=== PATIENT | female | born 1995 | race Caucasian/White ===

== ENCOUNTER 2016-11-27 11:28 | Emergency (ER) | payer OTHER, SELFPAY ==
[~2016-11-27 11:28] MED LIST: ADV100INH INH; ALBU83IN INH; DESYREL PO; HYDR25T PO; IBUP600T26 PO; METF500T PO; NORC5TAB PO; NORCOTAB PO; QVAR0.07 INH; SIME180C PO; TRAZ100T4 PO; TYLE325T5 PO; ZOFR20TA PO
[2016-11-27] MEDS ORDERED: predniSONE 20 MG TAB As Ordered ONE (11:45)
[2016-11-27] MEDS ORDERED: IPRATROPIUM 0.5MG/ALBUTEROL 2.5MG INH SOL UD 3ML (DUONEB)(J7620) As Ordered ONE (11:48)
--- NOTE | 2016-11-27 12:34 | EDDOCDS ---
Nurse's Notes [facility] Name: Swetha Shipley Age: 20 yrs Sex: Female : 1995 Arrival Date: 11/27/2016 Time: 11:28 Bed PR Private MD: Diagnosis: Acute upper respiratory infection, unspecified;Unspecified asthma with (acute) exacerbation Presentation: 11/27 11:35 Presenting complaint: Patient states: cough and wheezing for 2 days, ache to upper back jjr and chest. Adult Sepsis Screening: The patient does not have new or worsening altered mentation. Patient's respiratory rate is less than 22. Systolic blood pressure is greater than 100. Patient has a qSOFA score of 0- Negative Sepsis Screen. Suicide/Homicide risk assessment- the patient denies having any suicidal and/or homicidal ideations and does not present with any other emotional, behavioral or mental health complaints. 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 Transition of care: patient was not received from another setting of care. 11:35 Acuity: MONICA Level 4 jjr 11:35 Method Of Arrival: Walkin/Carried/Asstd jjr Triage Assessment: 11:37 General: Appears in no apparent distress. Pain: Location: back and chest. HIV screening jjr NA for this visit Offered previously. Respiratory: Reports cough that is persistent. 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 albuterol sulfate 90 mcg/actuation Inhl HFAA 2 puffs every 4-6 hours as needed 2. albuterol sulfate 2.5 mg /3 mL (0.083 %) Nebulizer nebu q8h prn (Last dose: 11/27/2016) 3. metformin 500 mg Oral tab 1 tab three times per day - PMHx: Asthma; Diabetes - NIDDM: controlled; Cancer, Colon; - PSHx: Cholecystectomy; Appendectomy; Bowel resection; lung biopsy; - Social history: Smoking status: Patient states former smoker of tobacco. No barriers to communication noted, The patient speaks fluent Qatari. - Family history: Not pertinent. - : The pt / caregiver states he / she is not on anticoagulants. Home medication list is obtained from the patient. - Exposure Risk Screening:: None identified. Screenin:31 Infection Control. bnb 11:43 Screening information is obtained from the patient. Fall risk: No risks identified. jjr Assistance ADL's: requires no assistance with activities of daily living. Abuse/DV Screen: The patient / caregiver reports he/she is: not in a situation that causes fear, pain or injury. Nutritional screening: No deficits noted. Advance Directives: There is no active DNR order. home support is adequate. Assessment: 11:43 General: Appears in no apparent distress, well nourished, well groomed, Behavior is jjr appropriate for age. Respiratory: Airway is patent Respiratory effort is even, unlabored, Respiratory pattern is regular, Breath sounds with wheezes inspiratory expiratory bilaterally. Derm: No deficits noted. 12:32 General: Appears in no apparent distress, Behavior is appropriate for age, cooperative. pml Pain: Denies pain. Neurological: Level of Consciousness is awake, alert, Oriented to person, place, time. Cardiovascular: Capillary refill < 3 seconds. Respiratory: Airway is patent Respiratory effort is even, unlabored. Derm: Skin is pink, warm & dry. Vital Signs: 11:29 BP 137 / 80 LA Sitting (auto/lg); Pulse 80; Resp 20; Temp 97.4(O); Pulse Ox 100% on bnb R/A; Weight 79.38 kg; Height 5 ft. 0 in. (152.40 cm); Pain 8/10; 11:29 Body Mass Index 34.18 (79.38 kg, 152.40 cm) [facility] Vitals: 11:29 Log In Time: November 27, 2016 at 11:28. [facility] ED Course: 11:29 Patient visited by Naheed Boateng PCA. bnb 11:29 Patient moved to Waiting bnb 11:30 Patient visited by Naheed Boateng PCA. bnb 11:30 Patient moved to Pre RCE bnb 11:31 Patient visited by Naheed Boateng PCA. bnb 11:35 Triage Initiated jjr 11:36 Ruslan Holland PA-C is PHCP. cc10 11:36 Charles Manzo MD is Attending Physician. cc10 11:37 Patient visited by Ruslan Holland PA-C. cc10 11:37 Patient visited by Ruslan Holland PA-C. cc10 11:37 Patient moved to Triage 2 ar3 11:40 Patient moved to PR2 / 26 jjr 11:43 The patient / caregiver is instructed regarding the plan of care and ED course. jjr 11:44 Patient visited by Vianey Moore RN. jjr 12:22 [facility] Payment Agreement was scanned into [employer] and attached to record. b 12:32 No IV's were initiated during this patient's visit. No procedures done that require pml assistance. Administered Medications: 11:47 Drug: predniSONE 40 mg [prednisone 20 mg tablet (2 tabs)] Route: PO; jjr 11:51 Drug: Albuterol-Ipratropium 3 ml [ipratropium-albuterol 0.5 mg-3 mg(2.5 mg base)/3 mL js nebulization soln (3 mL)] Route: Inhalation; RT: 11:51 Initial Med Neb Given as ordered Patient was instructed and evaluated on procedure js Patient tolerated procedure well without adverse effect. Respiratory: Breath sounds are coarse Breath sounds with wheezes bilaterally. at expiration. Order Results: There are currently no results for this order. Outcome: 12:21 Discharge ordered by Provider. cc10 12:32 Discharge Assessment: Patient awake, alert and oriented x 3. No cognitive and/or pml functional deficits noted. Patient verbalized understanding of disposition instructions. patient administered narcotics - no. The following High Risk Discharge criteria are identified: None. Discharged to home ambulatory. Condition: good Condition: stable. Discharge instructions given to patient, Instructed on discharge instructions, follow up and referral plans. medication usage, Demonstrated understanding of instructions, medications, Pt was receptive of discharge instructions/ teaching. Prescriptions given X 1. No special radiology studies were completed. Property sent home with patient. 12:34 Patient left the ED. pml Signatures: Doron Barriga Jessica, HAI RN Sanjuana Yoder, COMPLAINT CLERK COMPLAINT CLERK ar3 Gina Sotelo RN RN pml Coniski, Colin, PA-C PA-C cc10 Art, Jose, Reg Reg mpb Naheed Boateng, COMPLAINT CLERK COMPLAINT CLERK bnb MTDD
--- NOTE | 2016-11-27 12:34 | EDDOCDS ---
Physician Documentation [facility] Name: Swetha Shipley Age: 20 yrs Sex: Female : 1995 Arrival Date: 11/27/2016 Time: 11:28 Bed PR Private MD: Disposition: 11/27/16 12:21 Discharged to Home/Self Care. Impression: Acute upper respiratory infection, unspecified, Unspecified asthma with (acute) exacerbation. - Condition is Stable. - Discharge Instructions: Asthma, Adult. - Prescriptions for Pulmicort 0.5 mg/2 mL Inhalation suspension for nebulization - inhale 2 milliliter by NEBULIZATION route 2 times per day As needed; 1 box. - Medication Reconciliation, Work Release Form - 2 day form. - Follow up: Private Physician; When: Call to arrange an appointment; Reason: Wound/Symptom Recheck, Recheck today's complaints, Worsening of conditions, Continuance of care. - Problem is an acute exacerbation. - Symptoms have improved. Historical: - Allergies: no known allergies; - Home Meds: 1. albuterol sulfate 90 mcg/actuation Inhl HFAA 2 puffs every 4-6 hours as needed 2. albuterol sulfate 2.5 mg /3 mL (0.083 %) Nebulizer nebu q8h prn (Last dose: 11/27/2016) 3. metformin 500 mg Oral tab 1 tab three times per day - PMHx: Asthma; Diabetes - NIDDM: controlled; Cancer, Colon; - PSHx: Cholecystectomy; Appendectomy; Bowel resection; lung biopsy; - Social history: Smoking status: Patient states former smoker of tobacco. No barriers to communication noted, The patient speaks fluent Bahamian. - Family history: Not pertinent. - : The pt / caregiver states he / she is not on anticoagulants. Home medication list is obtained from the patient. - Exposure Risk Screening:: None identified. 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 0 in. (152.40 cm); Pain 8/10; 11:29 Body Mass Index 34.18 (79.38 kg, 152.40 cm) bnb MDM: 11:41 predniSONE 40 mg PO once; administer with food or milk ordered. cc10 11:41 Fluid Challenge ordered. cc10 11:41 Albuterol-Ipratropium 3 ml Inhalation once ordered. cc10 11:41 Call Respiratory ordered. cc10 11:42 Call Respiratory complete. jjr 12:06 Financial registration complete. mpb 12:22 [facility] Payment Agreement was scanned into [employer] and attached to record. mpb Administered Medications: 11:47 Drug: predniSONE 40 mg [prednisone 20 mg tablet (2 tabs)] Route: PO; jjr 11:51 Drug: Albuterol-Ipratropium 3 ml [ipratropium-albuterol 0.5 mg-3 mg(2.5 mg base)/3 mL js nebulization soln (3 mL)] Route: Inhalation; Signatures: Vianey Moore RN RN jGina Alanis RN RN pml Coniski, Colin, PA-C PA-C cc10 Jose Cordova, Reg Reg mpb Doron Barriga The chart was reviewed and I authenticate all verbal orders and agree with the evaluation and treatment provided.Attachments: 12:22 [facility] Payment Agreement mpb MTDD
--- NOTE | 2016-11-29 13:34 | EDDOCDS ---
Physician Documentation [facility] Name: Swetha Shipley Age: 20 yrs Sex: Female : 1995 Arrival Date: 11/27/2016 Time: 11:28 Bed PR Private MD: Disposition: 11/27/16 12:21 Discharged to Home/Self Care. Impression: Acute upper respiratory infection, unspecified, Unspecified asthma with (acute) exacerbation. - Condition is Stable. - Discharge Instructions: Asthma, Adult. - Prescriptions for Pulmicort 0.5 mg/2 mL Inhalation suspension for nebulization - inhale 2 milliliter by NEBULIZATION route 2 times per day As needed; 1 box. - Medication Reconciliation, Work Release Form - 2 day form. - Follow up: Private Physician; When: Call to arrange an appointment; Reason: Wound/Symptom Recheck, Recheck today's complaints, Worsening of conditions, Continuance of care. - Problem is an acute exacerbation. - Symptoms have improved. Historical: - Allergies: no known allergies; - Home Meds: 1. albuterol sulfate 90 mcg/actuation Inhl HFAA 2 puffs every 4-6 hours as needed 2. albuterol sulfate 2.5 mg /3 mL (0.083 %) Nebulizer nebu q8h prn (Last dose: 11/27/2016) 3. metformin 500 mg Oral tab 1 tab three times per day - PMHx: Asthma; Diabetes - NIDDM: controlled; Cancer, Colon; - PSHx: Cholecystectomy; Appendectomy; Bowel resection; lung biopsy; - Social history: Smoking status: Patient states former smoker of tobacco. No barriers to communication noted, The patient speaks fluent [place] Islander. - Family history: Not pertinent. - : The pt / caregiver states he / she is not on anticoagulants. Home medication list is obtained from the patient. - Exposure Risk Screening:: None identified. 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 0 in. (152.40 cm); Pain 8/10; 11:29 Body Mass Index 34.18 (79.38 kg, 152.40 cm) bnb MDM: 11:41 predniSONE 40 mg PO once; administer with food or milk ordered. cc10 11:41 Fluid Challenge ordered. cc10 11:41 Albuterol-Ipratropium 3 ml Inhalation once ordered. cc10 11:41 Call Respiratory ordered. cc10 11:42 Call Respiratory complete. jjr 12:06 Financial registration complete. mpb 12: [facility] Payment Agreement was scanned into [employer] and attached to record. mpb 20:52 T-Sheet-- Draft Copy was scanned into [employer] and attached to record. klr Administered Medications: 11:47 Drug: predniSONE 40 mg [prednisone 20 mg tablet (2 tabs)] Route: PO; jjr 11:51 Drug: Albuterol-Ipratropium 3 ml [ipratropium-albuterol 0.5 mg-3 mg(2.5 mg base)/3 mL js nebulization soln (3 mL)] Route: Inhalation; Signatures: Vianey Moore RN RN jjGina Browning RN RN pml Coniski, Colin, PA-Artemio PA-C cc10 Jose Cordova, Reg Reg mpb Dayan Min klr Doron Barriga The chart was reviewed and I authenticate all verbal orders and agree with the evaluation and treatment provided.Attachments: 12: [facility] Payment Agreement [facility] 20:52 T-Sheet-- Draft Copy klr Chart Complete MTDD
--- NOTE | 2016-11-29 13:35 | EDDOCDS ---
Physician Documentation [facility] Name: Swetha Shipley Age: 20 yrs Sex: Female : 1995 Arrival Date: 11/27/2016 Time: 11:28 Bed PR Private MD: Disposition: 11/27/16 12:21 Discharged to Home/Self Care. Impression: Acute upper respiratory infection, unspecified, Unspecified asthma with (acute) exacerbation. - Condition is Stable. - Discharge Instructions: Asthma, Adult. - Prescriptions for Pulmicort 0.5 mg/2 mL Inhalation suspension for nebulization - inhale 2 milliliter by NEBULIZATION route 2 times per day As needed; 1 box. - Medication Reconciliation, Work Release Form - 2 day form. - Follow up: Private Physician; When: Call to arrange an appointment; Reason: Wound/Symptom Recheck, Recheck today's complaints, Worsening of conditions, Continuance of care. - Problem is an acute exacerbation. - Symptoms have improved. Historical: - Allergies: no known allergies; - Home Meds: 1. albuterol sulfate 90 mcg/actuation Inhl HFAA 2 puffs every 4-6 hours as needed 2. albuterol sulfate 2.5 mg /3 mL (0.083 %) Nebulizer nebu q8h prn (Last dose: 11/27/2016) 3. metformin 500 mg Oral tab 1 tab three times per day - PMHx: Asthma; Diabetes - NIDDM: controlled; Cancer, Colon; - PSHx: Cholecystectomy; Appendectomy; Bowel resection; lung biopsy; - Social history: Smoking status: Patient states former smoker of tobacco. No barriers to communication noted, The patient speaks fluent Marshallese. - Family history: Not pertinent. - : The pt / caregiver states he / she is not on anticoagulants. Home medication list is obtained from the patient. - Exposure Risk Screening:: None identified. 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 0 in. (152.40 cm); Pain 8/10; 11:29 Body Mass Index 34.18 (79.38 kg, 152.40 cm) bnb MDM: 11:41 predniSONE 40 mg PO once; administer with food or milk ordered. cc10 11:41 Fluid Challenge ordered. cc10 11:41 Albuterol-Ipratropium 3 ml Inhalation once ordered. cc10 11:41 Call Respiratory ordered. cc10 11:42 Call Respiratory complete. jjr 12:06 Financial registration complete. mpb 12: [facility] Payment Agreement was scanned into [employer] and attached to record. mpb 20:52 T-Sheet-- Draft Copy was scanned into [employer] and attached to record. klr Administered Medications: 11:47 Drug: predniSONE 40 mg [prednisone 20 mg tablet (2 tabs)] Route: PO; jjr 11:51 Drug: Albuterol-Ipratropium 3 ml [ipratropium-albuterol 0.5 mg-3 mg(2.5 mg base)/3 mL js nebulization soln (3 mL)] Route: Inhalation; Signatures: Vianey Moore RN RN jjGina Browning RN RN pml Coniski, Colin, PA-Artemio PA-C cc10 Jose Cordova, Reg Reg mpb Dayan Min klr Doron Barriga The chart was reviewed and I authenticate all verbal orders and agree with the evaluation and treatment provided.Attachments: 12: [facility] Payment Agreement [facility] 20:52 T-Sheet-- Draft Copy klr Chart Complete MTDD
--- NOTE | 2016-11-29 13:35 | EDDOCDS ---
Nurse's Notes [facility] Name: Swetha Shipley Age: 20 yrs Sex: Female : 1995 Arrival Date: 11/27/2016 Time: 11:28 Bed PR Private MD: Diagnosis: Acute upper respiratory infection, unspecified;Unspecified asthma with (acute) exacerbation Presentation: 11/27 11:35 Presenting complaint: Patient states: cough and wheezing for 2 days, ache to upper back jjr and chest. Adult Sepsis Screening: The patient does not have new or worsening altered mentation. Patient's respiratory rate is less than 22. Systolic blood pressure is greater than 100. Patient has a qSOFA score of 0- Negative Sepsis Screen. Suicide/Homicide risk assessment- the patient denies having any suicidal and/or homicidal ideations and does not present with any other emotional, behavioral or mental health complaints. Status: Patient is not a it service technician or dependent. Transition of care: patient was not received from another setting of care. 11:35 Acuity: MONICA Level 4 jjr 11:35 Method Of Arrival: Walkin/Carried/Asstd jjr Triage Assessment: 11:37 General: Appears in no apparent distress. Pain: Location: back and chest. HIV screening jjr NA for this visit Offered previously. Respiratory: Reports cough that is persistent. 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 albuterol sulfate 90 mcg/actuation Inhl HFAA 2 puffs every 4-6 hours as needed 2. albuterol sulfate 2.5 mg /3 mL (0.083 %) Nebulizer nebu q8h prn (Last dose: 11/27/2016) 3. metformin 500 mg Oral tab 1 tab three times per day - PMHx: Asthma; Diabetes - NIDDM: controlled; Cancer, Colon; - PSHx: Cholecystectomy; Appendectomy; Bowel resection; lung biopsy; - Social history: Smoking status: Patient states former smoker of tobacco. No barriers to communication noted, The patient speaks fluent Filipino. - Family history: Not pertinent. - : The pt / caregiver states he / she is not on anticoagulants. Home medication list is obtained from the patient. - Exposure Risk Screening:: None identified. Screenin:31 Infection Control. bnb 11:43 Screening information is obtained from the patient. Fall risk: No risks identified. jjr Assistance ADL's: requires no assistance with activities of daily living. Abuse/DV Screen: The patient / caregiver reports he/she is: not in a situation that causes fear, pain or injury. Nutritional screening: No deficits noted. Advance Directives: There is no active DNR order. home support is adequate. Assessment: 11:43 General: Appears in no apparent distress, well nourished, well groomed, Behavior is jjr appropriate for age. Respiratory: Airway is patent Respiratory effort is even, unlabored, Respiratory pattern is regular, Breath sounds with wheezes inspiratory expiratory bilaterally. Derm: No deficits noted. 12:32 General: Appears in no apparent distress, Behavior is appropriate for age, cooperative. pml Pain: Denies pain. Neurological: Level of Consciousness is awake, alert, Oriented to person, place, time. Cardiovascular: Capillary refill < 3 seconds. Respiratory: Airway is patent Respiratory effort is even, unlabored. Derm: Skin is pink, warm & dry. Vital Signs: 11:29 BP 137 / 80 LA Sitting (auto/lg); Pulse 80; Resp 20; Temp 97.4(O); Pulse Ox 100% on bnb R/A; Weight 79.38 kg; Height 5 ft. 0 in. (152.40 cm); Pain 8/10; 11:29 Body Mass Index 34.18 (79.38 kg, 152.40 cm) [facility] Vitals: 11:29 Log In Time: November 27, 2016 at 11:28. [facility] ED Course: 11:29 Patient visited by Naheed Boateng PCA. bnb 11:29 Patient moved to Waiting bnb 11:30 Patient visited by Naheed Boateng PCA. bnb 11:30 Patient moved to Pre RCE bnb 11:31 Patient visited by Naheed Boateng PCA. bnb 11:35 Triage Initiated jjr 11:36 Ruslan Holland PA-C is PHCP. cc10 11:36 Charles Manzo MD is Attending Physician. cc10 11:37 Patient visited by Ruslan Holland PA-C. cc10 11:37 Patient visited by Ruslan Holland PA-C. cc10 11:37 Patient moved to Triage 2 ar3 11:40 Patient moved to PR2 / 26 jjr 11:43 The patient / caregiver is instructed regarding the plan of care and ED course. jjr 11:44 Patient visited by Vianey Moore RN. jjr 12:22 [facility] Payment Agreement was scanned into [employer] and attached to record. mpb 12:32 No IV's were initiated during this patient's visit. No procedures done that require pml assistance. 20:52 T-Sheet-- Draft Copy was scanned into [employer] and attached to record. klr Administered Medications: 11:47 Drug: predniSONE 40 mg [prednisone 20 mg tablet (2 tabs)] Route: PO; jr 11:51 Drug: Albuterol-Ipratropium 3 ml [ipratropium-albuterol 0.5 mg-3 mg(2.5 mg base)/3 mL js nebulization soln (3 mL)] Route: Inhalation; RT: 11:51 Initial Med Neb Given as ordered Patient was instructed and evaluated on procedure js Patient tolerated procedure well without adverse effect. Respiratory: Breath sounds are coarse Breath sounds with wheezes bilaterally. at expiration. Order Results: There are currently no results for this order. Outcome: 12:21 Discharge ordered by Provider. cc10 12:32 Discharge Assessment: Patient awake, alert and oriented x 3. No cognitive and/or pml functional deficits noted. Patient verbalized understanding of disposition instructions. patient administered narcotics - no. The following High Risk Discharge criteria are identified: None. Discharged to home ambulatory. Condition: good Condition: stable. Discharge instructions given to patient, Instructed on discharge instructions, follow up and referral plans. medication usage, Demonstrated understanding of instructions, medications, Pt was receptive of discharge instructions/ teaching. Prescriptions given X 1. No special radiology studies were completed. Property sent home with patient. 12:34 Patient left the ED. pml Signatures: Doron Barriga Jessica, HAI RN Sanjuana Yoder, FIELD ARTILLERY TARGETING TECHNICIAN FIELD ARTILLERY TARGETING TECHNICIAN ar3 Gina Sotelo RN RN pml Coniski, Colin, SHANNON PAMarcio cc10 Jose Cordova, Reg Elijah mpb Dayan Min klr Naheed Boateng, FIELD ARTILLERY TARGETING TECHNICIAN FIELD ARTILLERY TARGETING TECHNICIAN bnb Chart Complete MTDD
== END 2016-11-27 12:34 | disposition home or self-care (01) ==
LOC: M ED 11:28
DX: J45.901 Unspecified asthma with (acute) exacerbation (principal); J06.9 Acute upper respiratory infection, unspecified; E11.9 Type 2 diabetes mellitus without complications; Z85.038 Personal history of other malignant neoplasm of large intestine; Z90.49 Acquired absence of other specified parts of digestive tract; Z87.891 Personal history of nicotine dependence; Z79.899 Other long term (current) drug therapy; Z79.84 Long term (current) use of oral hypoglycemic drugs

== ENCOUNTER → 2016-11-29 | Outpatient (CLI) | payer OTHER ==
--- NOTE | 2016-11-29 13:28 | REP ---
Clinical: Acute bronchitis . Comparison: 05/27/2016. Technique: PA and lateral. Findings: The mediastinum and cardiac silhouette are normal. The lung nickerson are clear and without acute consolidation, effusion, or pneumothorax. The skeletal structures are intact and normal. Impression: 1. No acute cardiopulmonary process. Signed by Adan Wadsworth MD 11/29/2016 01:19 P
== END ==
LOC: M RAD 12:53
PROVIDERS: ATTEND Nurse Practitioner Adult Health
DX: J20.9 Acute bronchitis, unspecified (principal)

== ENCOUNTER 2017-02-09 16:47 | Inpatient (IN) | payer OTHER ==
[~2017-02-09] VITALS: Ht 152.4 cm; Wt 72.1 kg
[~2017-02-09 16:47] MED LIST changes: +NORC1TAB4 PO; -NORC5TAB PO
[2017-02-09 18:16] LABS: MEAN CORPUSCULAR HEMOGLOBIN 29.5 pg (27.0-33.0); MEAN CORPUSCULAR HGB CONC 34.3 g/dl (32.0-36.5); MEAN CORPUSCULAR VOLUME 86.1 fl (80.0-96.0); RED CELL DISTRIBUTION WIDTH 12.9 % (11.5-14.5); WHITE BLOOD COUNT 7.1 K/mm3 (4.0-10.0)
[2017-02-09 18:19] LABS: CONTROL LINE HCG INT CTR LINE PRESENT
[2017-02-09 18:23] LABS: METHADONE URINE NEGATIVE (NEGATIVE)
[2017-02-09 18:35] LABS: ALBUMIN 4.1 GM/DL (3.2-5.2); ALBUMIN/GLOBULIN RATIO 1.24 (1.00-1.93); ALKALINE PHOSPHATASE 58 U/L (45-117); ALT/SGPT 52 U/L (12-78); ANION GAP 8 MEQ/L (8-16); AST/SGOT 15 U/L (15-37); BILIRUBIN,DIRECT 0.1 MG/DL (0.0-0.2); BILIRUBIN,TOTAL 0.4 MG/DL (0.2-1.0); BLOOD UREA NITROGEN 13 MG/DL (7-18); CALCIUM LEVEL 8.6 MG/DL (8.5-10.1); CARBON DIOXIDE LEVEL 27 MEQ/L (21-32); CHLORIDE LEVEL 105 MEQ/L (98-107); CREATININE FOR GFR 0.73 MG/DL (0.55-1.02); GLUCOSE, FASTING 83 MG/DL (70-105); POTASSIUM SERUM 4.2 MEQ/L (3.5-5.1); SODIUM LEVEL 140 MEQ/L (136-145); TOTAL PROTEIN 7.4 GM/DL (6.4-8.2)
[2017-02-09] MEDS ORDERED: MAALOX 30 ML SUSP *UDC PO PRN (20:00)
[2017-02-09] MEDS ORDERED: traZODone 50 MG TAB PO PRN (20:00)
[2017-02-09] MEDS ORDERED: ACETAMINOPHEN TAB 650MG DOSE (2X325MG) PO PRN (20:00)
[2017-02-09] MEDS ORDERED: MOM 30ML SUSPENSION UDC PO PRN (20:00)
[2017-02-09 21:40] VITALS: BP 126/85
[2017-02-09] MEDS ORDERED: ALBUTEROL 90 MCG/ACT 8GM HFA INHALER INH PRN (22:45)
[2017-02-10 07:12] VITALS: BP 130/73
[2017-02-10] MEDS ORDERED: BECLOMETHASONE INH SCH (09:00)
[2017-02-10] MEDS: SERTRALINE 100 MG TAB PO SCH (09:22)
[2017-02-10] MEDS: metFORMIN (GLUCOPHAGE) 500 MG TAB PO SCH ×3 (09:22→17:26)
[2017-02-10] MEDS: NICOTINE 21MG/24HR 1 EA TRANSDERMAL TD SCH (09:23)
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
[2017-02-10] MEDS: FLUTICASONE HFA 44 MCG 10.6GM INHALER (FLOVENT) INH SCH ×2 (12:32→21:50)
--- NOTE | 2017-02-10 14:24 | IPNPDOC ---
[facility] Progress Note Progress Note DATE OF SERVICE: 02/10/17 HISTORY: . VITAL SIGNS: See below. NEW TEST RESULTS: . CURRENT MEDICATIONS: See below. MENTAL STATUS EXAMINATION: Patient is a -year old female, who is . Speech: Is . Language skills are . Thought processes including: . Thought content: . Abstract reasoning, and computation: . Description of associations: . Description of abnormal or psychotic thoughts: . Judgment: . Insight: [very limited, good, fair. poor]. Orientation: . Recent and remote memory: . Attention span and concentration: . Language: . Fund of knowledge: . Mood: . Affect: . DIAGNOSES: 1. MDD, moderate, recurrent 2. ZACHARY 3. nicotine dependence. ASSESSMENT: MANAGEMENT PLAN: . TIME SPENT: minutes. Vital Signs Vital Signs Date Time Temp Pulse Resp B/P (MAP) Pulse Ox O2 Delivery O2 Flow Rate FiO2 02/10/17 07:12 98.1 78 18 130/73 (92) 02/09/17 21:40 Room Air 02/09/17 20:59 98 Laboratory Data 24H Labs Laboratory Tests 2 02/09/17 17:49: Anion Gap 8, Calcium Level 8.6, Aspartate Amino Transf (AST/SGOT) 15, Alanine Aminotransferase (ALT/SGPT) 52, Alkaline Phosphatase 58, Total Bilirubin 0.4, Direct Bilirubin 0.1, Total Protein 7.4, Albumin 4.1, Albumin/Globulin Ratio 1.24, Thyroid Stimulating Hormone (TSH) 1.500, Human Chorionic Gonadotropin, Qual NEGATIVE, Salicylates Level 4.1L, Urine Amphetamines Screen NEGATIVE, Urine Benzodiazepines Screen NEGATIVE, Urine Opiates Screen NEGATIVE, Urine Methadone Screen NEGATIVE, Acetaminophen Level < 2.0L, Urine Barbiturates Screen NEGATIVE, Urine Phencyclidine Screen NEGATIVE, Urine Cocaine Metabolite Screen NEGATIVE, Urine Cannabinoids Screen NEGATIVE, Ethyl Alcohol Level < 0.003 CBC/BMP Laboratory Tests 02/09/17 17:49 Red Blood Count 5.16, Mean Corpuscular Volume 86.1, Mean Corpuscular Hemoglobin 29.5, Mean Corpuscular Hemoglobin Concent 34.3, Red Cell Distribution Width 12.9 Current Medications Current Medications Acetaminophen (Tylenol Tab) 650 mg Q6HP PRN PO HEADACHE or DISCOMFORT; Start at 20:00; Stop 03/11/17 at 19:59 Al Hydrox/Mg Hydrox/Simethicone (Mylanta) 30 ml Q4HP PRN PO HEARTBURN/ INDIGESTION; Start 02/09/17 at 20:00; Stop 03/11/17 at 19:59 Albuterol Sulfate (Proventil, Ventolin Hfa) 2 puff ASDIRECTED PRN INH SHORTNESS OF BREATH; Start 02/09/17 at 22:45; Stop 02/09/17 at 22:56; Status DC Albuterol Sulfate (Proventil, Ventolin Hfa) 2 puff Q2HP PRN INH SHORTNESS OF BREATH; Start 02/10/17 at 22:45; Stop 03/11/17 at 22:44 Fluticasone Propionate (Flovent Hfa 44 Mcg) 2 puff BID INH Last administered on 02/10/17 12:32; Start 02/10/17 at 09:00; Stop 03/12/17 at 08:59 Home Med (Med Rec Complete!) ASDIRECTED XX ; Start 02/09/17 at 20:15; Stop at 20:26; Status DC Hydroxyzine HCl (Atarax) 25 mg Q6HP PRN PO ANXIETY; Start 02/10/17 at 09:15; Stop 03/12/17 at 09:14 Magnesium Hydroxide (Milk Of Magnesia) 30 ml DAILYPRN PRN PO CONSTIPATION; Start 02/09/17 at 20:00; Stop 03/11/17 at 19:59 Metformin HCl (Glucophage) 500 mg WM PO Last administered on 02/10/17 12:33; Start 02/10/17 at 08:00; Stop 03/12/17 at 07:59 Miscellaneous (Unresolved Patient Own Med Order) SEE LABEL COMMENTS UNRESOLVED XX ; Start 02/10/17 at 00:01; Stop 02/10/17 at 11:22; Status DC Nicotine (Nicoderm Cq 21mg) 1 patch DAILY TD Last administered on 02/10/17 09: 23; Start 02/10/17 at 09:00; Stop 03/12/17 at 08:59 Patient Own Medication (Patient'S Own Med) 1 ea BID INH ; Start 02/10/17 at 09: 00; Stop 02/10/17 at 11:22; Status DC Prazosin HCl (Minipress) 1 mg QHS PO ; Start 02/10/17 at 21:00; Stop 03/12/17 at 20:59 Sertraline HCl (Zoloft) 100 mg DAILY PO Last administered on 02/10/17t 09:22; Start 02/10/17 at 09:00; Stop 03/12/17 at 08:59 Trazodone HCl (Desyrel) 50 mg QHSP PRN PO INSOMNIA; Start 02/09/17 at 20:00; Stop 02/10/17 at 09:03; Status DC Trazodone HCl (Desyrel) 100 mg QHSP PRN PO INSOMNIA; Start 02/10/17 at 09:15; Stop 03/12/17 at 09:14 Allergies Coded Allergies: No Known Drug Allergy (Unverified Allergy, Unknown, 02/16/16) Xiomy Saxena Feb 10, 2017 14:24
[2017-02-10 18:00] VITALS: BP 134/64
[2017-02-10] MEDS: PRAZOSIN 1 MG CAP PO SCH (21:49)
[2017-02-10] MEDS: traZODone 100 MG TAB PO PRN (22:29)
[2017-02-10] MEDS ORDERED: ALBUTEROL 90 MCG/ACT 8GM HFA INHALER INH PRN (22:45)
[2017-02-11 06:30] VITALS: BP 116/57
--- NOTE | 2017-02-11 08:09 | ECGEPIP ---
Stationary ECG Study [facility] Test Date: 2017-02-10 Pat Name: KERRI LE Department: Room: [place] [address] Gender: F Neurourologist: BASSAM : 1995 Requested By: Vita Lozano Order Number: [id number] Reading MD: Ronan Burleson Measurements Intervals [place] Rate: 73 P: 48 LA: 148 QRS: 41 QRSD: 99 T: 28 QT: 359 QTc: 397 Interpretive Statements Normal sinus rhythm with sinus arrhythmia Normal EKG Comparison tracing not on file Electronically Signed On 02-11-2017 8:09:11 EDT by Ronan Burleson
[2017-02-11] MEDS: metFORMIN (GLUCOPHAGE) 500 MG TAB PO SCH ×3 (08:33→16:59)
[2017-02-11] MEDS: FLUTICASONE HFA 44 MCG 10.6GM INHALER (FLOVENT) INH SCH ×2 (08:33→22:39)
[2017-02-11] MEDS: SERTRALINE 100 MG TAB PO SCH (08:33)
[2017-02-11] MEDS: NICOTINE 21MG/24HR 1 EA TRANSDERMAL TD SCH (08:33)
[2017-02-11] MEDS: hydrOXYzine 25 MG TAB PO PRN ×2 (10:34→16:59)
[2017-02-11 18:00] VITALS: BP 131/79
[2017-02-11] MEDS: PRAZOSIN 1 MG CAP PO SCH (22:39)
[2017-02-11] MEDS: traZODone 100 MG TAB PO PRN (22:39)
[2017-02-12 07:00] VITALS: BP 112/60
[2017-02-12] MEDS: SERTRALINE 100 MG TAB PO SCH (08:28)
[2017-02-12] MEDS: NICOTINE 21MG/24HR 1 EA TRANSDERMAL TD SCH (08:28)
[2017-02-12] MEDS: FLUTICASONE HFA 44 MCG 10.6GM INHALER (FLOVENT) INH SCH ×2 (08:28→21:27)
[2017-02-12] MEDS: metFORMIN (GLUCOPHAGE) 500 MG TAB PO SCH ×3 (08:28→17:52)
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
[2017-02-12] MEDS: hydrOXYzine 25 MG TAB PO PRN (12:13)
[2017-02-12 18:00] VITALS: BP 126/79
[2017-02-12] MEDS: PRAZOSIN 1 MG CAP PO SCH (21:28)
[2017-02-12] MEDS: traZODone 100 MG TAB PO PRN (22:18)
[2017-02-13 06:38] VITALS: BP 95/55
[2017-02-13] MEDS: SERTRALINE 100 MG TAB PO SCH (08:13)
[2017-02-13] MEDS: metFORMIN (GLUCOPHAGE) 500 MG TAB PO SCH ×3 (08:13→18:12)
[2017-02-13] MEDS: FLUTICASONE HFA 44 MCG 10.6GM INHALER (FLOVENT) INH SCH ×2 (08:14→20:40)
[2017-02-13] MEDS: NICOTINE 21MG/24HR 1 EA TRANSDERMAL TD SCH (08:14)
--- NOTE | 2017-02-13 14:00 | IPNPDOC ---
[facility] Progress Note Progress Note DATE OF SERVICE: 02/13/17 HISTORY: Day 5 of admission VITAL SIGNS: See below. NEW TEST RESULTS: CURRENT MEDICATIONS: See below. MENTAL STATUS EXAMINATION: Patient is a 21 -year old female, who appears stated age, good hygiene wearing a t-shirt and lounge pants. Speech: Is clear Language skills are intact Thought processes: linear Thought content: "I'm feeling much better than when I came in". "I'm going to need more time off work". Abstract reasoning, and computation: fair/slow. Description of associations: good. Description of abnormal or psychotic thoughts: pt does not present with psychotic symptoms. She is not manic. She denies SI and HI today Judgment: fair Insight: fair. Orientation: oriented to person, place time and situation. Recent and remote memory: good. Attention span and concentration: takes her a long time to complete what she starts, fair Fund of knowledge: full Mood: euthymic Affect: congruent DIAGNOSES: 1. MDD 2. ZACHARY 3. nicotine dependence. ASSESSMENT:Pt was visited by friends and family over the weekend. She is very close to her 15 yo sister who is too young to visit and this bother's her. They do talk on the phone though. Pt states all her siblings still live at home with the parents. Their significant others stay there too. She feels the family is "very close". She states she feels her mood has improved from the time she was admitted and she thinks she would like to leave on Monday but feels that due to the stress on her job she will need an additional 5 days at home before she can tolerate the stress at work. We will incorporate this into her discharge instructions. Pt states the addition of prazosin has improved and lessened her nightmares and helped her flashbacks. MANAGEMENT PLAN: Records requested but not received from [facility]. Looking for a medication list. DP will call again today and request it again. Pt has tolerated the increase in zoloft without difficulty. She reports good sleep She denies hallucinations. TIME SPENT: 30 minutes. Vital Signs Vital Signs Date Time Temp Pulse Resp B/P (MAP) Pulse Ox O2 Delivery O2 Flow Rate FiO2 02/13/17 06:38 98.7 67 18 95/55 (68) 02/09/17 21:40 Room Air 02/09/17 20:59 98 Current Medications Current Medications Acetaminophen (Tylenol Tab) 650 mg Q6HP PRN PO HEADACHE or DISCOMFORT; Start at 20:00; Stop 03/11/17 at 19:59 Al Hydrox/Mg Hydrox/Simethicone (Mylanta) 30 ml Q4HP PRN PO HEARTBURN/ INDIGESTION; Start 02/09/17 at 20:00; Stop 03/11/17 at 19:59 Albuterol Sulfate (Proventil, Ventolin Hfa) 2 puff ASDIRECTED PRN INH SHORTNESS OF BREATH; Start 02/09/17 at 22:45; Stop 02/09/17 at 22:56; Status DC Albuterol Sulfate (Proventil, Ventolin Hfa) 2 puff Q2HP PRN INH SHORTNESS OF BREATH; Start 02/10/17 at 22:45; Stop 03/11/17 at 22:44 Fluticasone Propionate (Flovent Hfa 44 Mcg) 2 puff BID INH Last administered on 02/13/17 08:14; Start 02/10/17 at 09:00; Stop 03/12/17 at 08:59 Home Med (Med Rec Complete!) ASDIRECTED XX ; Start 02/09/17 at 20:15; Stop at 20:26; Status DC Hydroxyzine HCl (Atarax) 25 mg Q6HP PRN PO ANXIETY Last administered on 12:13; Start 02/10/17 at 09:15; Stop 03/12/17 at 09:14 Magnesium Hydroxide (Milk Of Magnesia) 30 ml DAILYPRN PRN PO CONSTIPATION; Start 02/09/17 at 20:00; Stop 03/11/17 at 19:59 Metformin HCl (Glucophage) 500 mg WM PO Last administered on 02/13/17 12:33; Start 02/10/17 at 08:00; Stop 03/12/17 at 07:59 Miscellaneous (Unresolved Patient Own Med Order) SEE LABEL COMMENTS UNRESOLVED XX ; Start 02/10/17 at 00:01; Stop 02/10/17 at 11:22; Status DC Nicotine (Nicoderm Cq 21mg) 1 patch DAILY TD Last administered on 02/13/17 08: 14; Start 02/10/17 at 09:00; Stop 03/12/17 at 08:59 Patient Own Medication (Patient'S Own Med) 1 ea BID INH ; Start 02/10/17 at 09: 00; Stop 02/10/17 at 11:22; Status DC Prazosin HCl (Minipress) 1 mg QHS PO Last administered on 02/12/17 21:28; Start 02/10/17 at 21:00; Stop 03/12/17 at 20:59 Sertraline HCl (Zoloft) 100 mg DAILY PO Last administered on 02/13/17 08:13; Start 02/10/17 at 09:00; Stop 03/12/17 at 08:59 Trazodone HCl (Desyrel) 50 mg QHSP PRN PO INSOMNIA; Start 02/09/17 at 20:00; Stop 02/10/17 at 09:03; Status DC Trazodone HCl (Desyrel) 100 mg QHSP PRN PO INSOMNIA Last administered on 22:18; Start 02/10/17 at 09:15; Stop 03/12/17 at 09:14 Allergies Coded Allergies: No Known Drug Allergy (Unverified Allergy, Unknown, 02/16/16) Xiomy Saxena February 13, 2017 14:00
[2017-02-13 18:00] VITALS: BP 129/78
[2017-02-13] MEDS: hydrOXYzine 25 MG TAB PO PRN (20:40)
[2017-02-13 22:30] VITALS: BP 129/78
[2017-02-13] MEDS: traZODone 100 MG TAB PO PRN (22:30)
[2017-02-13] MEDS: PRAZOSIN 1 MG CAP PO SCH (22:30)
[2017-02-14 06:29] VITALS: BP 129/74
[2017-02-14] MEDS: metFORMIN (GLUCOPHAGE) 500 MG TAB PO SCH ×2 (07:27→12:17)
[2017-02-14] MEDS: NICOTINE 21MG/24HR 1 EA TRANSDERMAL TD SCH (08:22)
[2017-02-14] MEDS: FLUTICASONE HFA 44 MCG 10.6GM INHALER (FLOVENT) INH SCH (08:24)
[2017-02-14] MEDS: SERTRALINE 100 MG TAB PO SCH (08:24)
[2017-02-14] MEDS ORDERED: SERT-138 PO (11:30)
[2017-02-14] MEDS ORDERED: HYDR25T PO (11:30)
[2017-02-14] MEDS ORDERED: MINI1CAP PO (11:30)
[2017-02-14] MEDS ORDERED: TRAZ10TA PO (11:30)
--- NOTE | 2017-02-14 11:57 | DS.PDOC ---
[facility] Discharge Summary Discharge Summary DATE OF ADMISSION: Feb 09, 2017 at 19:52 DATE OF DISCHARGE: February 14, 2017 DISCHARGE DIAGNOSES: 1. MDD, severe recurrent 2. Generalized Anxiety Disorder REASON FOR ADMISSION: pt was suicidal prior to admission with thoughts of jumping out her window on the second story. CONSULTANTS INVOLVED: TREATMENT AND PROGRESS ON THE UNIT : Pt was treated with Zoloft 100 mg daily. Prazosin 1 mg was added at bedtime to help with nightmares. Trazodone 100 mg helped with sleep and vistaril prn for anxiety. Pt did used the vistaril about once a day. Pt is aware of triggers and knows she can dose the medication prior to going to stores or being around people to prevent her from having a panic attack. HOSPITAL COURSE: Ms. Shipley was adherent to recommendations regarding medications and the attendance at therapeutic program. She stated she learned a lot about stress release and improved coping by attending Yoga, and meditation group. No behavior problems. DISCHARGE ASSESSMENT:Pt reports feeling much more stable and less anxious and depressed since her admission. She plans to fu with her providers at [facility] as well at the [facility] regarding therapy. Pt agrees to take her medications as prescribed. She agrees not to stop her medication abruptly. Pt will report any return of depression and/or suicidal thoughts to her therapist prior to making any attempt to harm herself or others. MENTAL STATUS EXAMINATION ON DISCHARGE: Patient is a 21 year old female, who is dressed in casual attire, jeans and a T- shirt, hygiene is good, good eye contact. Speech is spontaneous & clear Language skills are good. Thought processes including: goal directed and logical Thought content: appropriate Abstract reasoning, and computation: adequate Description of associations: good Description of abnormal or psychotic thoughts: Pt has not felt suicidal in the last 48 hours. Pt denies psychotic symptoms. Judgment: fair Insight: good Orientation: oriented in all spheres. Recent and remote memory: intact Attention span and concentration: good Fund of knowledge: full Mood: euthymic Affect: calm, congruent MEDICATIONS ON DISCHARGE: - sertraline for depression/anxiety - prazosin for nightmares - vistaril for anxiety/panic attacks - trazodone for insomnia PLAN/FOLLOWUP ARRANGEMENTS: [facility] for med mgt and therapy. Can walk in to [facility] at her convenience to obtain services. Pt is considered low risk for suicide and is not a danger to herself or others at the time of discharge from this facility. She states she understands her medications and how to take them and was given an opportunity to ask any questions she may have. The amount of time spent in the coordination of care for this patient was approximately 30 minutes. Vital Signs/I&Os Vital Signs Date Time Temp Pulse Resp B/P (MAP) Pulse Ox O2 Delivery O2 Flow Rate FiO2 02/14/17 06:29 96.9 74 16 129/74 (92) 02/09/17 21:40 Room Air 02/09/17 20:59 98 Medications Scheduled Beclomethasone Dipropionate (Qvar) 40 Mcg/Act Aer, 40 MCG INH BID, (Reported) Metformin Hydrochloride (Metformin HCl) 500 Mg Tab, 500 MG PO TID, (Reported) Prazosin HCl (Minipress) 1 Mg Cap, 1 MG PO QHS for nightmares for 7 Days, #7 take at bedtime to help with nightmares. Sertraline HCl (Sertraline HCl) 100 Mg Tab, 100 MG PO DAILY for MOOD for 7 Days , #7 Scheduled PRN Albuterol Sulfate (Albuterol Sulfate) 2.5 Mg/3 Ml Nebu, 2.5 MG INH PRN PRN for SOB/WHEEZING, (Reported) Hydroxyzine HCl (Hydroxyzine HCl) 25 Mg Tab, 25 MG PO Q6HP PRN for ANXIETY for 7 Days, #28 take every 6 hours as needed for panic or anxiety. Trazodone HCl (Trazodone HCl) 100 Mg Tab, 100 MG PO QHSP PRN for INSOMNIA for 7 Days, #7 Allergies Coded Allergies: No Known Drug Allergy (Unverified Allergy, Unknown, 02/16/16) Xiomy Saxena February 14, 2017 11:57
== END 2017-02-14 13:50 | disposition home or self-care (01) | DRG 751 ==
LOC: M ED 17:43 → M ED INP 19:52 → M PSY 21:18
PROVIDERS: ADMIT Psychiatry & Neurology Psychiatry; ATTEND Psychiatry & Neurology Child & Adolescent Psychiatry
DX: F33.2 Major depressive disorder, recurrent severe without psychotic features (principal); F41.1 Generalized anxiety disorder; Z79.899 Other long term (current) drug therapy; J45.909 Unspecified asthma, uncomplicated; F17.200 Nicotine dependence, unspecified, uncomplicated

== ENCOUNTER 2017-03-08 16:31 | Inpatient (IN) | payer OTHER ==
[~2017-03-08] VITALS: Ht 152.4 cm; Wt 67.1 kg
[~2017-03-08 16:31] MED LIST changes: +MINI1CAP PO; +SERT-138 PO; +TRAZ10TA PO
[2017-03-08 18:26] LABS: MEAN CORPUSCULAR HGB CONC 34.5 g/dl (32.0-36.5); MEAN CORPUSCULAR VOLUME 83.9 fl (80.0-96.0); RED CELL DISTRIBUTION WIDTH 12.7 % (11.5-14.5); WHITE BLOOD COUNT 8.7 K/mm3 (4.0-10.0)
[2017-03-08 18:28] LABS: CONTROL LINE HCG INT CTR LINE PRESENT
[2017-03-08 18:44] LABS: ALBUMIN 4.3 GM/DL (3.2-5.2); ALBUMIN/GLOBULIN RATIO 1.19 (1.00-1.93); ALKALINE PHOSPHATASE 66 U/L (45-117); ALT/SGPT 51 U/L (12-78); ANION GAP 9 MEQ/L (8-16); AST/SGOT 24 U/L (15-37); BILIRUBIN,DIRECT 0.2 MG/DL (0.0-0.2); BILIRUBIN,TOTAL 0.6 MG/DL (0.2-1.0); BLOOD UREA NITROGEN 12 MG/DL (7-18); CALCIUM LEVEL 8.9 MG/DL (8.5-10.1); CARBON DIOXIDE LEVEL 24 MEQ/L (21-32); CHLORIDE LEVEL 107 MEQ/L (98-107); CREATININE FOR GFR 0.77 MG/DL (0.55-1.02); GLUCOSE, FASTING 69 MG/DL (70-105); POTASSIUM SERUM 3.8 MEQ/L (3.5-5.1); SODIUM LEVEL 140 MEQ/L (136-145); TOTAL PROTEIN 7.9 GM/DL (6.4-8.2)
[2017-03-08 19:32] LABS: METHADONE URINE NEGATIVE (NEGATIVE)
[2017-03-08] MEDS: PRAZOSIN 1 MG CAP PO SCH (21:00)
[2017-03-08] MEDS ORDERED: HYDR1CAP25 PO (21:37)
[2017-03-08] MEDS ORDERED: MINI2CAP PO (21:37)
[2017-03-08] MEDS ORDERED: SERT-138 PO (21:37)
[2017-03-08] MEDS ORDERED: TRAZ100T4 PO (21:37)
[2017-03-08] MEDS ORDERED: PROA1AER INH (21:37)
[2017-03-08] MEDS ORDERED: ABIL1TAB7 PO (21:39)
[2017-03-08 23:31] VITALS: BP 129/86
[2017-03-09] MEDS ORDERED: MAALOX 30 ML SUSP *UDC PO PRN (01:30)
[2017-03-09] MEDS ORDERED: traZODone 50 MG TAB PO PRN (01:30)
[2017-03-09] MEDS ORDERED: ALBUTEROL 90 MCG/ACT 8GM HFA INHALER INH PRN (01:30)
[2017-03-09] MEDS ORDERED: MOM 30ML SUSPENSION UDC PO PRN (01:30)
[2017-03-09 06:33] VITALS: BP 125/71
[2017-03-09] MEDS: ARIPiprazole 10 MG TAB PO SCH (08:42)
[2017-03-09] MEDS: metFORMIN (GLUCOPHAGE) 500 MG TAB PO SCH ×3 (08:42→21:38)
[2017-03-09] MEDS: ACETAMINOPHEN TAB 650MG DOSE (2X325MG) PO PRN (08:43)
[2017-03-09] MEDS: NICOTINE 21MG/24HR 1 EA TRANSDERMAL TD SCH (08:43)
[2017-03-09] MEDS ORDERED: BECLOMETHASONE DIPROPIONATE INH SCH (09:00)
[2017-03-09] MEDS ORDERED: SERTRALINE 100 MG TAB PO SCH (09:00)
[2017-03-09] MEDS ORDERED: metFORMIN (GLUCOPHAGE) 500 MG TAB PO ONE (09:00)
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
--- NOTE | 2017-03-09 10:21 | REP ---
Clinical: Abdominal pain. Comparison: 12/08/2015. Findings: Liver demonstrates focal fatty infiltration adjacent to the gallbladder fossa. Spleen, pancreas, bilateral adrenal glands and kidneys are normal. The patient is status post cholecystectomy and surgery at the cecum likely appendectomy. There is no evidence for bowel obstruction or acute inflammatory process. Fat containing periumbilical hernia measures 3.5 cm. Pelvis demonstrates normal bladder and age-appropriate uterus/left adnexa enlarged right ovary likely representing cystic change measures 4.4 cm maximal diameter. No pelvic fluid or ascites. No free air. No adenopathy. Lung bases are clear. Impression: 1. Enlarged right ovary measuring 4.4 cm maximal diameter may be related to patient's symptoms and should be correlated with pelvic ultrasound if necessary. 2. No further acute intra-abdominal or pelvic pathology appreciated Signed by Adan Wadsworth MD 03/09/2017 10:12 A
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
[2017-03-09] MEDS: CEFDINIR 300 MG CAP (OMNICEF) PO SCH ×2 (12:46→21:38)
--- NOTE | 2017-03-09 15:07 | REP ---
Clinical: Lower abdominal pain. Technique: Transabdominal pelvic ultrasound followed by transvaginal examination for better evaluation of the endometrium and adnexa with color Doppler evaluation of the ovaries. Findings: Normal anteverted uterus measures 6.7 x 3.2 x 4.2 cm. Endometrial complex measures 11.4 mm thickness with small scattered cysts and may be related to menstrual cycle. No focal uterine or endometrial abnormalities are appreciated. No pelvic fluid or adnexal mass lesion. Right ovary measures 5.6 x 4.5 x 5.4 cm with normal vascularity (RI=0.53) and includes 4.4 cm simple cyst. Left ovary measures 3.6 x 1.8 x 2.6 with normal vascularity (RI=0.54) and appears normal. Impression: 4.4 cm right ovarian cyst possibly related to patient's symptoms. Thickened endometrium with small cysts likely related to menstrual cycle. Consider reevaluation in 4-6 weeks to evaluate for resolution. Signed by Adan Wadsworth MD 03/09/2017 02:59 P
[2017-03-09 18:00] VITALS: BP 152/75
[2017-03-09] MEDS: PRAZOSIN 1 MG CAP PO SCH (21:38)
[2017-03-10 06:48] VITALS: BP 129/60
[2017-03-10 07:15] LABS: MEAN CORPUSCULAR HEMOGLOBIN 29.5 pg (27.0-33.0); MEAN CORPUSCULAR HGB CONC 35.1 g/dl (32.0-36.5); MEAN CORPUSCULAR VOLUME 84.1 fl (80.0-96.0); RED CELL DISTRIBUTION WIDTH 12.8 % (11.5-14.5); WHITE BLOOD COUNT 7.2 K/mm3 (4.0-10.0)
[2017-03-10 07:37] LABS: ALBUMIN 3.9 GM/DL (3.2-5.2); ALBUMIN/GLOBULIN RATIO 1.22 (1.00-1.93); ALKALINE PHOSPHATASE 57 U/L (45-117); ALT/SGPT 48 U/L (12-78); ANION GAP 9 MEQ/L (8-16); AST/SGOT 16 U/L (15-37); BILIRUBIN,TOTAL 0.4 MG/DL (0.2-1.0); BLOOD UREA NITROGEN 10 MG/DL (7-18); CALCIUM LEVEL 8.9 MG/DL (8.5-10.1); CARBON DIOXIDE LEVEL 25 MEQ/L (21-32); CHLORIDE LEVEL 108 MEQ/L (98-107); CREATININE FOR GFR 0.79 MG/DL (0.55-1.02); GLUCOSE, FASTING 91 MG/DL (70-105); POTASSIUM SERUM 3.6 MEQ/L (3.5-5.1); SODIUM LEVEL 142 MEQ/L (136-145); TOTAL PROTEIN 7.1 GM/DL (6.4-8.2)
[2017-03-10] MEDS: metFORMIN (GLUCOPHAGE) 500 MG TAB PO SCH ×3 (08:29→22:18)
[2017-03-10] MEDS: CEFDINIR 300 MG CAP (OMNICEF) PO SCH ×2 (08:29→22:18)
[2017-03-10] MEDS: NICOTINE 21MG/24HR 1 EA TRANSDERMAL TD SCH (08:29)
[2017-03-10] MEDS: SERTRALINE HCL 50 MG TAB PO SCH (08:29)
[2017-03-10] MEDS: ARIPiprazole 10 MG TAB PO SCH (08:29)
[2017-03-10] MEDS: hydrOXYzine 25 MG TAB PO PRN (13:08)
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
[2017-03-10 18:00] VITALS: BP 137/85
[2017-03-10] MEDS: PRAZOSIN 1 MG CAP PO SCH (22:19)
[2017-03-11 06:24] VITALS: BP 119/67
[2017-03-11] MEDS: hydrOXYzine 25 MG TAB PO PRN ×2 (08:54→17:36)
[2017-03-11] MEDS: SERTRALINE HCL 50 MG TAB PO SCH (08:54)
[2017-03-11] MEDS: metFORMIN (GLUCOPHAGE) 500 MG TAB PO SCH ×3 (08:54→22:14)
[2017-03-11] MEDS: CEFDINIR 300 MG CAP (OMNICEF) PO SCH ×2 (08:54→22:13)
[2017-03-11] MEDS: ARIPiprazole 10 MG TAB PO SCH (08:54)
[2017-03-11] MEDS: NICOTINE 21MG/24HR 1 EA TRANSDERMAL TD SCH (08:55)
[2017-03-11 18:00] VITALS: BP 144/94
[2017-03-11] MEDS: PRAZOSIN 1 MG CAP PO SCH (22:14)
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
[2017-03-12] MEDS: ACETAMINOPHEN TAB 650MG DOSE (2X325MG) PO PRN (03:33)
[2017-03-12] MEDS: hydrOXYzine 25 MG TAB PO PRN (05:22)
[2017-03-12 07:15] VITALS: BP 122/74
[2017-03-12] MEDS: NICOTINE 21MG/24HR 1 EA TRANSDERMAL TD SCH (08:11)
[2017-03-12] MEDS: CEFDINIR 300 MG CAP (OMNICEF) PO SCH ×2 (08:11→21:36)
[2017-03-12] MEDS: SERTRALINE HCL 50 MG TAB PO SCH (08:11)
[2017-03-12] MEDS: metFORMIN (GLUCOPHAGE) 500 MG TAB PO SCH ×3 (08:11→21:37)
[2017-03-12] MEDS: ARIPiprazole 10 MG TAB PO SCH (08:12)
[2017-03-12] MEDS ORDERED: QUEtiapine FUMARATE 25 MG TAB PO ONE (10:00)
[2017-03-12] MEDS ORDERED: LORazepam 2 MG TAB As Ordered ONE (13:10)
[2017-03-12] MEDS ORDERED: HALOPERIDOL 5 MG TAB As Ordered ONE (13:10)
[2017-03-12] MEDS ORDERED: HALOPERIDOL 5 MG TAB PO ONE (13:15)
[2017-03-12] MEDS ORDERED: LORazepam 2 MG TAB PO ONE (13:15)
[2017-03-12 18:00] VITALS: BP 146/89
[2017-03-12] MEDS ORDERED: QUEtiapine FUMARATE 100 MG TAB PO SCH (21:00)
--- NOTE | 2017-03-12 21:14 | IPN ---
DATE: 03/12/2017 SUBJECTIVE: "I need to call the [facility]." OBJECTIVE: The patient is very paranoid today, intrusive, irritable, impulsive. The patient is intermittently agitated. She accepted 25 mg of Seroquel early this morning that was partially effective, but then later on in the afternoon, she started yelling and screaming and it was difficult to redirect. She accepted to take Haldol 5 mg and Ativan 2 mg by mouth that was effective to control her high anxiety, agitation, irritability and impulsivity. MENTAL STATUS EXAMINATION: The patient is dressed in [facility]. The patient is uncooperative, is delusional, poor eye contact. Speech is pressured. Mood is anxious. Affect is agitated, irritable. The patient is paranoid, delusional, probably reacting to internal stimuli. Insight and judgment are very poor. ASSESSMENT: 1. Psychosis/paranoia. 2. Bipolar disorder, manic episode. PLAN: 1. Continue Abilify 20 mg by mouth every morning. 2. Discontinue Zoloft and trazodone as the patient is displaying manic behavior. 3. Continue with Prazosin 2 mg by mouth at bedtime.
[2017-03-12] MEDS: PRAZOSIN 1 MG CAP PO SCH (21:37)
[2017-03-13 06:00] VITALS: BP 115/65
[2017-03-13] MEDS: metFORMIN (GLUCOPHAGE) 500 MG TAB PO SCH ×3 (08:44→20:35)
[2017-03-13] MEDS: ARIPiprazole 10 MG TAB PO SCH (08:44)
[2017-03-13] MEDS: CEFDINIR 300 MG CAP (OMNICEF) PO SCH ×2 (08:44→20:34)
[2017-03-13] MEDS: NICOTINE 21MG/24HR 1 EA TRANSDERMAL TD SCH (08:45)
[2017-03-13] MEDS: hydrOXYzine 25 MG TAB PO PRN (11:57)
[2017-03-13] MEDS ORDERED: HALOPERIDOL 2 MG TAB PO STA (14:08)
[2017-03-13] MEDS: ACETAMINOPHEN TAB 650MG DOSE (2X325MG) PO PRN (15:26)
[2017-03-13 18:00] VITALS: BP 138/83
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
[2017-03-13] MEDS: QUEtiapine FUMARATE 200 MG TAB PO SCH (20:34)
[2017-03-13] MEDS: HALOPERIDOL 2 MG TAB PO SCH (20:35)
[2017-03-13] MEDS: PRAZOSIN 1 MG CAP PO SCH (20:35)
[2017-03-14 06:18] VITALS: BP 98/50
[2017-03-14] MEDS: metFORMIN (GLUCOPHAGE) 500 MG TAB PO SCH ×3 (09:05→21:26)
[2017-03-14] MEDS: ARIPiprazole 10 MG TAB PO SCH (09:05)
[2017-03-14] MEDS: HALOPERIDOL 2 MG TAB PO SCH ×2 (09:05→21:26)
[2017-03-14] MEDS: CEFDINIR 300 MG CAP (OMNICEF) PO SCH ×2 (09:05→21:26)
[2017-03-14] MEDS: QUEtiapine FUMARATE 200 MG TAB PO SCH ×2 (09:05→21:26)
[2017-03-14] MEDS: NICOTINE 21MG/24HR 1 EA TRANSDERMAL TD SCH (09:06)
--- NOTE | 2017-03-14 12:53 | MHIPNPDOC ---
[facility] Progress Note Progress Note DATE OF SERVICE: 03/14/17 INTERVAL HISTORY: Medication Side effects: Denies Behavior: Less aggressive, less violent Group Attendance: Has had limited attendance due to patients psychotic state Psychiatric Symptom change: Less aggressive VITAL SIGNS: See below. NEW TEST RESULTS: See below CURRENT MEDICATIONS: See below. MENTAL STATUS EXAMINATION: General:Alert, good eye contact, cooperative but guarded and suspicious Speech: Normal in tone, volume. Not pressured, not circumstantial and not tangential Thought processes:Irrational Thought content: Delusional, paranoid, persecutory. Admits to auditory and visual hallucinations. Abstract reasoning, and computation: Poor Description of associations:Not loose Description of abnormal or psychotic thoughts:bizarre delusionas, persecutory and paranoid delusions. Auditory and visual hallucinations Judgment: Poor Insight: Poor Orientation:Oriented x 3 Recent and remote memory: Fair Attention span and concentration: Fair Fund of knowledge: Fair Mood: "Im angry at my sister" Affect: Irritable, anxious DIAGNOSES: 1. Bipolar Disorder, manic episode. 2. R/O Schizoaffective D/O. 3. . ASSESSMENT:Patient continues to be paranoid but she is less agitated. She believes theres cameras all over the [facility] and that they have been placed there by her sister, which only shows she continues to be very paranoid. MANAGEMENT PLAN: Medications:Will continue with current medications Psychotherapy:Will encourage her to attend more groups once she is less psychotic Social: -- Misc: -- Disposition: She needs to continue with hospitalization until she is stable enough to go home. TIME SPENT: 20 minutes. Vital Signs Vital Signs Date Time Temp Pulse Resp B/P (MAP) Pulse Ox O2 Delivery O2 Flow Rate FiO2 03/14/17 06:18 97.3 66 18 98/50 (66) 03/08/17 23:02 97 Room Air Current Medications Current Medications Acetaminophen (Tylenol Tab) 650 mg Q6HP PRN PO HEADACHE or DISCOMFORT Last administered on 03/13/17t 15:26; Start 03/09/17 at 01:30; Stop 04/08/17 at 01:29 Al Hydrox/Mg Hydrox/Simethicone (Mylanta) 30 ml Q4HP PRN PO HEARTBURN/ INDIGESTION; Start 03/09/17 at 01:30; Stop 04/08/17 at 01:29 Albuterol Sulfate (Proventil, Ventolin Hfa) 2 puff Q4HP PRN INH SHORTNESS OF BREATH; Start 03/09/17 at 01:30; Stop 04/08/17 at 01:29 Aripiprazole (AbiLIFY) 20 mg DAILY PO Last administered on 03/14/17 09:05; Start 03/09/17 at 09:00; Stop 04/08/17 at 08:59 Cefdinir (Omnicef) 300 mg BID PO Last administered on 03/14/17 09:05; Start at 09:00; Stop 03/16/17 at 08:59 Haloperidol (Haldol) 2 mg BID PO Last administered on 03/14/17 09:05; Start at 21:00; Stop 04/12/17 at 20:59 Haloperidol (Haldol) 2 mg STAT STAT PO Last administered on 03/13/17 14:44; Start 03/13/17 at 14:08; Stop 03/13/17 at 14:10; Status DC Home Med (Med Rec Complete!) ASDIRECTED XX ; Start 03/08/17 at 21:45; Stop at 21:45; Status DC Hydroxyzine HCl (Atarax) 25 mg Q8HP PRN PO ANXIETY Last administered on 11:57; Start 03/09/17 at 01:30; Stop 04/08/17 at 01:29 Magnesium Hydroxide (Milk Of Magnesia) 30 ml DAILYPRN PRN PO CONSTIPATION; Start 03/09/17 at 01:30; Stop 04/08/17 at 01:29 Metformin HCl (Glucophage) 500 mg TID PO Last administered on 03/14/17 09:05; Start 03/09/17 at 09:00; Stop 04/08/17 at 08:59 Miscellaneous (Unresolved Patient Own Med Order) SEE LABEL COMMENTS UNRESOLVED XX ; Start 03/09/17 at 00:01; Stop 03/10/17 at 13:43; Status DC Nicotine (Nicoderm Cq 21mg) 1 patch DAILY TD Last administered on 03/14/17 09: 06; Start 03/09/17 at 09:00; Stop 04/08/17 at 08:59 Patient Own Medication (Patient'S Own Med) 1 ea BID INH ; Start 03/09/17 at 09: 00; Stop 03/10/17 at 13:43; Status DC Prazosin HCl (Minipress) 2 mg QHS PO Last administered on 03/13/17 20:35; Start 03/08/17 at 21:00; Stop 04/07/17 at 20:59 Quetiapine Fumarate (SEROquel) 100 mg QHS PO Last administered on 03/12/17 21: 37; Start 03/12/17 at 21:00; Stop 03/13/17 at 14:07; Status DC Quetiapine Fumarate (SEROquel) 200 mg BID PO Last administered on 03/14/17 09: 05; Start 03/13/17 at 21:00; Stop 04/11/17 at 20:59 Sertraline HCl (Zoloft) 50 mg DAILY PO Last administered on 03/12/17 08:11; Start 03/10/17 at 09:00; Stop 03/12/17 at 09:59; Status DC Sertraline HCl (Zoloft) 100 mg DAILY PO Last administered on 03/09/17 08:42; Start 03/09/17 at 09:00; Stop 03/09/17 at 15:42; Status DC Trazodone HCl (Desyrel) 100 mg QHSP PRN PO INSOMNIA Last administered on 21:39; Start 03/09/17 at 01:30; Stop 03/12/17 at 09:59; Status DC Allergies Coded Allergies: No Known Drug Allergy (Unverified Allergy, Unknown, 02/16/16) NAHUN RAMIREZ MD March 14, 2017 12:53
[2017-03-14 18:07] VITALS: BP 141/88
[2017-03-14] MEDS: PRAZOSIN 1 MG CAP PO SCH (21:26)
[2017-03-15 06:34] VITALS: BP 118/67
[2017-03-15] MEDS: HALOPERIDOL 5 MG TAB PO SCH ×2 (08:32→21:34)
[2017-03-15] MEDS: QUEtiapine FUMARATE 200 MG TAB PO SCH ×2 (08:32→21:33)
[2017-03-15] MEDS: CEFDINIR 300 MG CAP (OMNICEF) PO SCH ×2 (08:32→21:34)
[2017-03-15] MEDS: metFORMIN (GLUCOPHAGE) 500 MG TAB PO SCH ×3 (08:32→21:34)
[2017-03-15] MEDS: ARIPiprazole 10 MG TAB PO SCH (08:32)
[2017-03-15] MEDS: BENZTROPINE 1 MG TAB PO SCH ×2 (08:33→21:33)
[2017-03-15] MEDS: NICOTINE 21MG/24HR 1 EA TRANSDERMAL TD SCH (08:33)
[2017-03-15] MEDS: hydrOXYzine 25 MG TAB PO PRN (18:13)
[2017-03-15 18:40] VITALS: BP 135/83
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
[2017-03-15] MEDS: PRAZOSIN 1 MG CAP PO SCH (21:34)
[2017-03-16 07:06] VITALS: BP 131/76
[2017-03-16] MEDS: QUEtiapine FUMARATE 200 MG TAB PO SCH ×3 (08:19→21:36)
[2017-03-16] MEDS: BENZTROPINE 1 MG TAB PO SCH ×2 (08:19→21:36)
[2017-03-16] MEDS: HALOPERIDOL 5 MG TAB PO SCH ×2 (08:19→21:36)
[2017-03-16] MEDS: ARIPiprazole 10 MG TAB PO SCH (08:19)
[2017-03-16] MEDS: NICOTINE 21MG/24HR 1 EA TRANSDERMAL TD SCH (08:20)
[2017-03-16] MEDS: metFORMIN (GLUCOPHAGE) 500 MG TAB PO SCH ×3 (08:20→21:36)
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
[2017-03-16 18:00] VITALS: BP 124/76
[2017-03-16] MEDS: PRAZOSIN 1 MG CAP PO SCH (21:37)
[2017-03-17 06:00] VITALS: BP 93/52
[2017-03-17] MEDS: QUEtiapine FUMARATE 200 MG TAB PO SCH ×3 (08:30→20:13)
[2017-03-17] MEDS: HALOPERIDOL 5 MG TAB PO SCH ×3 (08:30→20:14)
[2017-03-17] MEDS: NICOTINE 21MG/24HR 1 EA TRANSDERMAL TD SCH (08:30)
[2017-03-17] MEDS: ARIPiprazole 10 MG TAB PO SCH (08:30)
[2017-03-17] MEDS: BENZTROPINE 1 MG TAB PO SCH ×2 (08:30→20:14)
[2017-03-17] MEDS: metFORMIN (GLUCOPHAGE) 500 MG TAB PO SCH ×3 (08:30→20:13)
[2017-03-17 18:00] VITALS: BP 125/67
[2017-03-17] MEDS: PRAZOSIN 1 MG CAP PO SCH (20:14)
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
[2017-03-18 06:15] VITALS: BP 108/58
[2017-03-18] MEDS: QUEtiapine FUMARATE 200 MG TAB PO SCH ×3 (08:30→19:59)
[2017-03-18] MEDS: ARIPiprazole 10 MG TAB PO SCH (08:30)
[2017-03-18] MEDS: BENZTROPINE 1 MG TAB PO SCH ×2 (08:30→19:59)
[2017-03-18] MEDS: NICOTINE 21MG/24HR 1 EA TRANSDERMAL TD SCH (08:30)
[2017-03-18] MEDS: HALOPERIDOL 5 MG TAB PO SCH ×3 (08:31→19:59)
[2017-03-18] MEDS: metFORMIN (GLUCOPHAGE) 500 MG TAB PO SCH ×3 (08:31→19:59)
[2017-03-18] MEDS: hydrOXYzine 25 MG TAB PO PRN (16:16)
[2017-03-18 18:14] VITALS: BP 130/84
[2017-03-18] MEDS: PRAZOSIN 1 MG CAP PO SCH (20:00)
[2017-03-19 06:00] VITALS: BP 121/63
[2017-03-19 06:41] VITALS: BP 116/57
[2017-03-19] MEDS: metFORMIN (GLUCOPHAGE) 500 MG TAB PO SCH ×3 (08:02→21:09)
[2017-03-19] MEDS: ARIPiprazole 10 MG TAB PO SCH (08:02)
[2017-03-19] MEDS: NICOTINE 21MG/24HR 1 EA TRANSDERMAL TD SCH (08:02)
[2017-03-19] MEDS: BENZTROPINE 1 MG TAB PO SCH ×2 (08:02→21:09)
[2017-03-19] MEDS: QUEtiapine FUMARATE 200 MG TAB PO SCH ×3 (08:03→21:09)
[2017-03-19] MEDS: HALOPERIDOL 5 MG TAB PO SCH ×3 (08:03→21:09)
[2017-03-19 18:00] VITALS: BP 120/70
[2017-03-19] MEDS: PRAZOSIN 1 MG CAP PO SCH (21:09)
[2017-03-20 06:35] VITALS: BP 102/58
[2017-03-20] MEDS: HALOPERIDOL 5 MG TAB PO SCH ×3 (08:04→21:10)
[2017-03-20] MEDS: BENZTROPINE 1 MG TAB PO SCH ×2 (08:04→21:10)
[2017-03-20] MEDS: metFORMIN (GLUCOPHAGE) 500 MG TAB PO SCH ×3 (08:04→21:11)
[2017-03-20] MEDS: QUEtiapine FUMARATE 200 MG TAB PO SCH ×3 (08:04→21:11)
[2017-03-20] MEDS: ARIPiprazole 10 MG TAB PO SCH (08:04)
[2017-03-20] MEDS: NICOTINE 21MG/24HR 1 EA TRANSDERMAL TD SCH (08:06)
[2017-03-20] MEDS ORDERED: HALO5TA PO (15:04)
[2017-03-20] MEDS ORDERED: QUET1TAB9 PO (15:04)
[2017-03-20] MEDS ORDERED: BENZ1TA PO (15:04)
[2017-03-20 18:00] VITALS: BP 137/82
[2017-03-20 21:11] VITALS: BP 126/66
[2017-03-20] MEDS: PRAZOSIN 1 MG CAP PO SCH (21:11)
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
[2017-03-21 06:44] VITALS: BP 116/74
[2017-03-21] MEDS: NICOTINE 21MG/24HR 1 EA TRANSDERMAL TD SCH (08:11)
[2017-03-21] MEDS: BENZTROPINE 1 MG TAB PO SCH (08:13)
[2017-03-21] MEDS: metFORMIN (GLUCOPHAGE) 500 MG TAB PO SCH (08:13)
[2017-03-21] MEDS: HALOPERIDOL 5 MG TAB PO SCH (08:13)
[2017-03-21] MEDS: QUEtiapine FUMARATE 200 MG TAB PO SCH (08:13)
[2017-03-21] MEDS: ARIPiprazole 10 MG TAB PO SCH (08:13)
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
== END 2017-03-21 11:05 | disposition home or self-care (01) | DRG 750 ==
LOC: M ED 17:36 → M ED INP 20:46 → M PSY 23:17
PROVIDERS: ADMIT Psychiatry & Neurology Psychiatry; ATTEND Psychiatry & Neurology Psychiatry
DX: F20.0 Paranoid schizophrenia (principal); F17.200 Nicotine dependence, unspecified, uncomplicated; Z79.899 Other long term (current) drug therapy; J45.909 Unspecified asthma, uncomplicated; M54.2 Cervicalgia; R10.9 Unspecified abdominal pain

== ENCOUNTER 2017-03-26 18:39 | Emergency (ER) | payer OTHER ==
[~2017-03-26] VITALS: Ht 152.4 cm; Wt 68.0 kg
[~2017-03-26 18:39] MED LIST changes: +ABIL1TAB7 PO; +BENZ1TA PO; +HALO5TA PO; +HYDR1CAP25 PO; +MINI2CAP PO; +PROA1AER INH; +QUET1TAB9 PO
[2017-03-26] MEDS ORDERED: METOCLOPRAMIDE INJ 10MG/2ML VIAL (J2765) IV ONE (19:30)
[2017-03-26] MEDS ORDERED: KETOROLAC 30 MG/ML VIAL (J1885) IV ONE (19:30)
[2017-03-26] MEDS ORDERED: NS 1,000 ML IV ONE (19:30)
[2017-03-26] MEDS ORDERED: diphenhydrAMINE INJ 50MG/ML VIAL (J1200) IV ONE (19:30)
[2017-03-26 20:21] LABS: MEAN CORPUSCULAR HGB CONC 34.9 g/dl (32.0-36.5); MEAN CORPUSCULAR VOLUME 85.9 fl (80.0-96.0); RED CELL DISTRIBUTION WIDTH 12.8 % (11.5-14.5); WHITE BLOOD COUNT 8.6 K/mm3 (4.0-10.0)
[2017-03-26 20:36] LABS: CONTROL LINE HCG INT CTR LINE PRESENT
--- NOTE | 2017-03-26 21:20 | REPUSA ---
CLINICAL HISTORY: Headaches. TECHNIQUE: Multiple axial brain CT scan sections were obtained from base to vertex without contrast a dministration. COMMENTS: The study shows normal configuration of sella turcica. There are no intra or extra-axial collections. There is no mass effect or midline shift. There is no evidence of hematoma formation. No hydrocephal us is present. No abnormal calcifications are noted. No significant abnormalities are seen either in the posterior fossa or supratentorial compartment. The sinuses and mastoid air cells are patent. IMPRESSION: No evidence of acute intracranial pathology. Thank you for your kind referral of this patient.
[2017-03-26 21:37] VITALS: BP 124/74
== END 2017-03-26 21:38 | disposition home or self-care (01) ==
LOC: M ED 19:45
DX: R51 Headache (principal); E11.9 Type 2 diabetes mellitus without complications; J45.909 Unspecified asthma, uncomplicated; F17.200 Nicotine dependence, unspecified, uncomplicated; Z79.84 Long term (current) use of oral hypoglycemic drugs; Z79.899 Other long term (current) drug therapy

== ENCOUNTER 2017-04-01 17:17 | Emergency (ER) | payer OTHER ==
[~2017-04-01] VITALS: Ht 152.4 cm; Wt 67.8 kg
[~2017-04-01 17:17] MED LIST changes: -ABIL1TAB7 PO; +ABIL20TA5 PO; +BENZ-52 PO; -BENZ1TA PO; +HYDR-3363 PO; -HYDR25T PO; +IBUP-1022 PO; -IBUP600T26 PO; -METF500T PO; +METF500T13 PO; -PROA1AER INH; +PROAAER10 INH; +TRAZ-136 PO; -TRAZ100T4 PO
[2017-04-01] MEDS ORDERED: VALT500T PO (17:28)
[2017-04-01 19:08] LABS: CONTROL LINE HCG INT CTR LINE PRESENT; MEAN CORPUSCULAR HEMOGLOBIN 29.5 pg (27.0-33.0); MEAN CORPUSCULAR HGB CONC 34.5 g/dl (32.0-36.5); MEAN CORPUSCULAR VOLUME 85.3 fl (80.0-96.0); WHITE BLOOD COUNT 7.6 K/mm3 (4.0-10.0)
[2017-04-01 19:16] LABS: METHADONE URINE NEGATIVE (NEGATIVE)
[2017-04-01 19:20] LABS: ALBUMIN 4.1 GM/DL (3.2-5.2); ALBUMIN/GLOBULIN RATIO 1.32 (1.00-1.93); ALKALINE PHOSPHATASE 60 U/L (45-117); ALT/SGPT 52 U/L (12-78); ANION GAP 6 MEQ/L (8-16); AST/SGOT 20 U/L (15-37); BILIRUBIN,DIRECT 0.1 MG/DL (0.0-0.2); BILIRUBIN,TOTAL 0.4 MG/DL (0.2-1.0); BLOOD UREA NITROGEN 12 MG/DL (7-18); CALCIUM LEVEL 8.8 MG/DL (8.5-10.1); CARBON DIOXIDE LEVEL 29 MEQ/L (21-32); CHLORIDE LEVEL 106 MEQ/L (98-107); CREATININE FOR GFR 1.01 MG/DL (0.55-1.02); GLUCOSE, FASTING 91 MG/DL (70-105); POTASSIUM SERUM 3.9 MEQ/L (3.5-5.1); SODIUM LEVEL 141 MEQ/L (136-145); TOTAL PROTEIN 7.2 GM/DL (6.4-8.2)
[2017-04-01 20:15] VITALS: BP 120/74
== END 2017-04-01 20:16 | disposition home or self-care (01) ==
LOC: M ED 17:47
DX: F32.9 Major depressive disorder, single episode, unspecified (principal); F41.9 Anxiety disorder, unspecified; F20.9 Schizophrenia, unspecified; J45.909 Unspecified asthma, uncomplicated; F17.200 Nicotine dependence, unspecified, uncomplicated; Z90.49 Acquired absence of other specified parts of digestive tract; Z90.89 Acquired absence of other organs

== ENCOUNTER 2017-07-12 18:47 | Emergency (ER) | payer OTHER ==
[~2017-07-12] VITALS: Ht 152.4 cm; Wt 65.9 kg
[2017-07-12 18:47] VITALS: BP 130/77
[~2017-07-12 18:47] MED LIST changes: +VALT500T PO
[2017-07-12] MEDS ORDERED: QUET1TAB9 (19:25)
[2017-07-12] MEDS ORDERED: HYDR1CAP25 (19:25)
[2017-07-12] MEDS ORDERED: AMOX500C PO (20:04)
[2017-07-12] MEDS ORDERED: NAPR500T PO (20:04)
== END 2017-07-12 20:20 | disposition home or self-care (01) ==
LOC: M ED 18:47
DX: K02.9 Dental caries, unspecified (principal); G50.1 Atypical facial pain; F17.200 Nicotine dependence, unspecified, uncomplicated; Z79.84 Long term (current) use of oral hypoglycemic drugs; Z79.899 Other long term (current) drug therapy

== ENCOUNTER → 2018-06-27 | Outpatient (CLI) | payer OTHER ==
[2018-06-27 08:04] LABS: BASO # 0.1 10^3/uL (0.0-0.2); BASO % 0.7 % (0.0-1.0); EOS # 0.5 10^3/uL (0.0-0.50); EOS % 4.8 % (0.0-3.0); HEMATOCRIT 44.6 % (36.0-47.0); HEMOGLOBIN 15.1 g/dl (12.0-15.5); IMMATURE GRANULOCYTE % 0.3 % (0-3.0); LYMPH # 3.6 10^3/uL (1.5-6.5); LYMPH % 36.8 % (24.0-44.0); MEAN CORPUSCULAR HEMOGLOBIN 28.8 pg (27.0-33.0); MEAN CORPUSCULAR HGB CONC 33.9 g/dl (32.0-36.5); MEAN CORPUSCULAR VOLUME 85.1 fl (80.0-96.0); MONO # 0.7 10^3/uL (0.0-0.8); MONO % 7.5 % (0.0-5.0); NEUTROPHILS # 4.9 10^3/uL (1.8-7.7); NEUTROPHILS % 49.9 % (36.0-66.0); PLATELET COUNT, AUTOMATED 328 10^3/uL (150-450); RED BLOOD COUNT 5.24 10^6/uL (4.00-5.40); WHITE BLOOD COUNT 9.7 10^3/uL (4.0-10.0)
[2018-06-27 08:37] LABS: ALBUMIN 4.3 GM/DL (3.2-5.2); ALBUMIN/GLOBULIN RATIO 1.26 (1.00-1.93); ALKALINE PHOSPHATASE 58 U/L (45-117); ALT/SGPT 99 U/L (12-78); ANION GAP 10 MEQ/L (8-16); AST/SGOT 34 U/L (7-37); BILIRUBIN,TOTAL 0.4 MG/DL (0.2-1.0); BLOOD UREA NITROGEN 11 MG/DL (7-18); CALCIUM LEVEL 9.3 MG/DL (8.5-10.1); CARBON DIOXIDE LEVEL 24 MEQ/L (21-32); CHLORIDE LEVEL 106 MEQ/L (98-107); CHOLESTEROL LEVEL 104 MG/DL (<200); CREATININE FOR GFR 0.87 MG/DL (0.55-1.30); GLOMERULAR FILTRATION RATE > 60.0 (>60); GLUCOSE, FASTING 82 MG/DL (70-100); HDL CHOLESTEROL 32 MG/DL (>40); LDL CHOLESTEROL 54 MG/DL (<100); NON-HDL-C 72 MG/DL; POTASSIUM SERUM 3.9 MEQ/L (3.5-5.1); SODIUM LEVEL 140 MEQ/L (136-145); TOTAL PROTEIN 7.7 GM/DL (6.4-8.2); TRIGLYCERIDES LEVEL 91 MG/DL (<150)
[2018-06-27 09:20] LABS: ESTIMATED AVERAGE GLUCOSE 105 MG/DL (60-110); HEMOGLOBIN A1c 5.3 %
[2018-06-27 10:47] LABS: TOTAL 25(OH) VITAMIN D 24.6 NG/ML (30.0-100.0)
[2018-06-28 14:17] LABS: INSULIN LEVEL 12.9 uIU/mL (2.6-24.9)
== END ==
LOC: M LAB 07:07
DX: Z13.228 Encounter for screening for other metabolic disorders (principal); Z13.220 Encounter for screening for lipoid disorders; E55.9 Vitamin D deficiency, unspecified
CPT/HCPCS: 83525

== ENCOUNTER 2018-07-15 12:30 | Emergency (ER) | payer OTHER, MEDICAID ==
[2018-07-15] MEDS: methylPREDNISolone INJ 125 MG/2 ML VIAL (J2930) IM (13:21)
[2018-07-15] MEDS: IPRATROPIUM 0.5MG/ALBUTEROL 2.5MG INH SOL UD 3ML (DUONEB)(J7620) NEB (13:39)
== END 2018-07-15 14:42 | disposition home or self-care (01) ==
LOC: M ED 12:30
DX: J45.901 Unspecified asthma with (acute) exacerbation (principal); F17.210 Nicotine dependence, cigarettes, uncomplicated; Z79.899 Other long term (current) drug therapy
CPT/HCPCS: J2930

== ENCOUNTER 2018-07-31 12:18 | Emergency (ER) | payer OTHER ==
[2018-07-31] MEDS: ALBUTEROL SULFATE 2.5 MG/0.5 ML INH NEB SOLN NEB ×2 (13:17→13:26)
[2018-07-31] MEDS: methylPREDNISolone INJ 125 MG/2 ML VIAL (J2930) IM (14:00)
== END 2018-07-31 14:27 | disposition home or self-care (01) ==
LOC: M ED 12:18
DX: J45.901 Unspecified asthma with (acute) exacerbation (principal); R51 Headache; F41.9 Anxiety disorder, unspecified; F31.9 Bipolar disorder, unspecified; K76.0 Fatty (change of) liver, not elsewhere classified; F17.200 Nicotine dependence, unspecified, uncomplicated; Z79.51 Long term (current) use of inhaled steroids
CPT/HCPCS: J2930

== ENCOUNTER 2018-08-07 14:34 | Inpatient (IN) | payer OTHER ==
[2018-08-07 15:33] LABS: HEMOGLOBIN 14.4 g/dl (12.0-15.5); MEAN CORPUSCULAR HEMOGLOBIN 29.3 pg (27.0-33.0); MEAN CORPUSCULAR HGB CONC 33.5 g/dl (32.0-36.5); MEAN CORPUSCULAR VOLUME 87.6 fl (80.0-96.0); PLATELET COUNT, AUTOMATED 279 10^3/uL (150-450); RED BLOOD COUNT 4.91 10^6/uL (4.00-5.40); RED CELL DISTRIBUTION WIDTH 12.7 % (11.5-14.5); WHITE BLOOD COUNT 8.1 10^3/uL (4.0-10.0)
[2018-08-07 15:58] LABS: CONTROL LINE HCG INT CTR LINE PRESENT; HCG, SERUM QUALITATIVE NEGATIVE (NEGATIVE)
[2018-08-07] MEDS: HALOPERIDOL 5 MG/ML VIAL (J1630) IM (16:15)
[2018-08-07] MEDS: diphenhydrAMINE INJ 50MG/ML VIAL (J1200) IM (16:15)
[2018-08-07 16:20] LABS: ALKALINE PHOSPHATASE 51 U/L (45-117); ALT/SGPT 73 U/L (12-78); ANION GAP 7 MEQ/L (8-16); AST/SGOT 36 U/L (7-37); BILIRUBIN,DIRECT 0.1 MG/DL (0.0-0.2); BILIRUBIN,TOTAL 0.4 MG/DL (0.2-1.0); BLOOD UREA NITROGEN 9 MG/DL (7-18); CALCIUM LEVEL 9.6 MG/DL (8.5-10.1); CARBON DIOXIDE LEVEL 27 MEQ/L (21-32); CHLORIDE LEVEL 108 MEQ/L (98-107); CREATININE FOR GFR 0.84 MG/DL (0.55-1.30); GLOMERULAR FILTRATION RATE > 60.0 (>60); GLUCOSE, FASTING 91 MG/DL (70-100); POTASSIUM SERUM 3.8 MEQ/L (3.5-5.1); SODIUM LEVEL 142 MEQ/L (136-145); TOTAL PROTEIN 7.3 GM/DL (6.4-8.2)
[2018-08-07 16:21] LABS: ACETAMINOPHEN LEVEL < 2.0 UG/ML (10.0-30.0); ALBUMIN 4.2 GM/DL (3.2-5.2); ALBUMIN/GLOBULIN RATIO 1.35 (1.00-1.93); ETHYL ALCOHOL (ETHANOL) < 0.003 % (0.000-0.010); SALICYLATE LEVEL 4.1 MG/DL (5.0-30.0); THYROID STIMULATING HORMONE 0.402 uIU/ML (0.358-3.740)
[2018-08-07 21:06] LABS: AMPHETAMINES LEVEL URINE NEGATIVE (NEGATIVE); BARBITURATES URINE NEGATIVE (NEGATIVE); BENZODIAZEPINES URINE NEGATIVE (NEGATIVE); CANNABINOIDS URINE NEGATIVE (NEGATIVE); COCAINE METABOLITE URINE NEGATIVE (NEGATIVE); METHADONE URINE NEGATIVE (NEGATIVE); OPIATES URINE NEGATIVE (NEGATIVE); PHENCYCLIDINE URINE NEGATIVE (NEGATIVE)
[2018-08-07] MEDS ORDERED: MAALOX 30 ML SUSP *UDC PO (23:00)
[2018-08-08] MEDS: traZODone 50 MG TAB PO ×2 (01:16→20:45)
[2018-08-08] MEDS: OLANZapine ORAL DISINTEGRATING TAB 5MG PO (08:01)
[2018-08-08] MEDS ORDERED: DEXTRAN/HYPROMELLOSE OPHTH SOLN 15 ML(GENTEAL TEARS) OU (10:15)
[2018-08-08 16:03] LABS: AMORPHOUS SEDIMENT RFX SMALL (NEGATIVE); KETONE, URINE AUTO RFX NEGATIVE (NEGATIVE); MUCUS, URINE RFX SMALL (NEGATIVE); NITRITE, URINE AUTO RFX NEGATIVE (NEGATIVE); RBC, URINE AUTO RFX 0 /HPF (0-3); SPECIFIC GRAVITY UR AUTO RFX 1.012 (1.002-1.035); SQUAM EPITHELIAL CELL UR AURFX 11 /HPF (0-6); WBC, URINE AUTO RFX 10 /HPF (0-3)
[2018-08-08 16:07] LABS: LEUKOCYTE ESTERASE UR AUTO RFX 2+ (NEGATIVE)
[2018-08-08] MEDS: MOM 30ML SUSPENSION UDC PO (22:35)
[2018-08-09] MEDS ORDERED: LORazepam 2 MG TAB PO (02:30)
[2018-08-09] MEDS ORDERED: diphenhydrAMINE 50 MG CAP PO (02:30)
[2018-08-09] MEDS ORDERED: HALOPERIDOL 10 MG TAB PO (02:30)
[2018-08-09] MEDS: HALOPERIDOL 5 MG/ML VIAL (J1630) IM (02:45)
[2018-08-09] MEDS: LORazepam 2 MG/ML VIAL (J2060) IM (02:46)
[2018-08-09] MEDS: diphenhydrAMINE INJ 50MG/ML VIAL (J1200) IM (02:46)
[2018-08-09] MEDS ORDERED: ENTER DRUG NAME HERE (PATIENT'S OWN MED) PO (09:00)
[2018-08-09] MEDS ORDERED: ENTER DRUG NAME HERE (PATIENT'S OWN MED) INH (09:00)
[2018-08-09] MEDS: traZODone 50 MG TAB PO (21:22)
[2018-08-09] MEDS: ACETAMINOPHEN TAB 650MG DOSE (2X325MG) PO (21:22)
[2018-08-09] MEDS: OLANZapine ORAL DISINTEGRATING TAB 5MG PO (21:22)
[2018-08-10] MEDS: ARIPiprazole 10 MG TAB PO (20:45)
[2018-08-11] MEDS: ACETAMINOPHEN TAB 650MG DOSE (2X325MG) PO (00:50)
[2018-08-11] MEDS: NICOTINE 21MG/24HR 1 EA TRANSDERMAL TD (09:00)
[2018-08-11] MEDS: OLANZapine ORAL DISINTEGRATING TAB 5MG PO ×2 (09:08→14:25)
[2018-08-11] MEDS: ARIPiprazole 10 MG TAB PO ×2 (09:08→20:39)
[2018-08-12] MEDS: ARIPiprazole 10 MG TAB PO (08:16)
[2018-08-12] MEDS: ALBUTEROL 90 MCG/ACT 8GM HFA INHALER INH (08:19)
[2018-08-12] MEDS: OLANZapine ORAL DISINTEGRATING TAB 5MG PO (08:20)
[2018-08-12] MEDS: NICOTINE 21MG/24HR 1 EA TRANSDERMAL TD ×2 (09:00→09:38)
[2018-08-12] MEDS ORDERED: LORazepam 2 MG TAB PO (11:00)
[2018-08-12] MEDS: LORazepam 2 MG TAB PO ×2 (11:03→21:21)
[2018-08-12] MEDS: ONDANSETRON 4 MG TAB (S0181) PO (11:03)
[2018-08-12] MEDS ORDERED: LORazepam 1 MG TAB PO (12:00)
[2018-08-12] MEDS: ACETAMINOPHEN TAB 650MG DOSE (2X325MG) PO (16:21)
[2018-08-12] MEDS: ARIPiprazole 15 MG TAB (AbiLIFY) PO (21:20)
[2018-08-13] MEDS: NICOTINE 21MG/24HR 1 EA TRANSDERMAL TD (09:00)
[2018-08-13] MEDS: ARIPiprazole 15 MG TAB (AbiLIFY) PO ×2 (09:31→21:40)
[2018-08-13] MEDS: OLANZapine ORAL DISINTEGRATING TAB 5MG PO ×2 (09:32→21:41)
[2018-08-13] MEDS: ACETAMINOPHEN TAB 650MG DOSE (2X325MG) PO (11:16)
[2018-08-13] MEDS: LORazepam 2 MG TAB PO ×2 (13:43→21:40)
[2018-08-13] MEDS: ARIPiprazole MONOHYDRATE 400 MG INJ (ABILIFY)(J0401) IM (17:01)
[2018-08-14] MEDS: OLANZapine ORAL DISINTEGRATING TAB 5MG PO ×2 (06:07→10:12)
[2018-08-14] MEDS: NICOTINE 21MG/24HR 1 EA TRANSDERMAL TD (08:43)
[2018-08-14] MEDS: ARIPiprazole 15 MG TAB (AbiLIFY) PO ×2 (08:43→21:18)
[2018-08-14] MEDS: LORazepam 2 MG TAB PO (09:21)
[2018-08-14] MEDS: AUGMENTIN 875 MG TAB PO ×2 (10:27→21:17)
[2018-08-14] MEDS: ALBUTEROL 90 MCG/ACT 8GM HFA INHALER INH (17:50)
[2018-08-14] MEDS: traZODone 50 MG TAB PO (21:18)
[2018-08-15] MEDS: NICOTINE 21MG/24HR 1 EA TRANSDERMAL TD (09:00)
[2018-08-15] MEDS ORDERED: **PENDING PPD ENTRY XX (09:00)
[2018-08-15] MEDS: OLANZapine ORAL DISINTEGRATING TAB 5MG PO ×2 (09:29→21:24)
[2018-08-15] MEDS: ACETAMINOPHEN TAB 650MG DOSE (2X325MG) PO (09:31)
[2018-08-15] MEDS: ARIPiprazole 15 MG TAB (AbiLIFY) PO (09:32)
[2018-08-15] MEDS: AUGMENTIN 875 MG TAB PO ×2 (09:32→20:10)
[2018-08-15] MEDS: LORazepam 2 MG TAB PO ×2 (13:06→21:23)
[2018-08-15] MEDS ORDERED: TUBERCULIN PPD 5 UNITS/0.1 ML ID (15:15)
[2018-08-15] MEDS: TUBERCULIN PPD 5 UNITS/0.1 ML ID (16:23)
[2018-08-15] MEDS: ONDANSETRON 4 MG TAB (S0181) PO (17:59)
[2018-08-15] MEDS: HALOPERIDOL 5 MG TAB PO (20:10)
[2018-08-15] MEDS: traZODone 50 MG TAB PO (21:23)
[2018-08-16] MEDS: NICOTINE 21MG/24HR 1 EA TRANSDERMAL TD (09:00)
[2018-08-16] MEDS: HALOPERIDOL 5 MG TAB PO ×2 (09:10→20:44)
[2018-08-16] MEDS: AUGMENTIN 875 MG TAB PO ×2 (09:10→20:44)
[2018-08-16] MEDS: ONDANSETRON 4 MG TAB (S0181) PO (10:37)
[2018-08-16] MEDS: ALBUTEROL 90 MCG/ACT 8GM HFA INHALER INH (14:23)
[2018-08-16] MEDS: OLANZapine ORAL DISINTEGRATING TAB 5MG PO (18:45)
[2018-08-16] MEDS: traZODone 50 MG TAB PO (22:35)
[2018-08-16] MEDS: LORazepam 2 MG TAB PO (22:35)
[2018-08-17] MEDS: AUGMENTIN 875 MG TAB PO ×2 (08:28→20:52)
[2018-08-17] MEDS: HALOPERIDOL 5 MG TAB PO ×2 (08:28→20:52)
[2018-08-17] MEDS: NICOTINE 21MG/24HR 1 EA TRANSDERMAL TD (08:29)
[2018-08-17] MEDS ORDERED: PPD DOCUMENTATION ENTRY MISC XX (10:00)
[2018-08-17] MEDS: OLANZapine ORAL DISINTEGRATING TAB 5MG PO ×2 (11:58→20:52)
[2018-08-17] MEDS: PPD DOCUMENTATION ENTRY MISC XX (16:02)
[2018-08-17] MEDS: traZODone 50 MG TAB PO (20:52)
[2018-08-17] MEDS: LORazepam 2 MG TAB PO (20:52)
[2018-08-18] MEDS: NICOTINE 21MG/24HR 1 EA TRANSDERMAL TD (09:00)
[2018-08-18] MEDS: OLANZapine ORAL DISINTEGRATING TAB 5MG PO ×2 (09:50→20:47)
[2018-08-18] MEDS: HALOPERIDOL 5 MG TAB PO ×2 (09:50→20:47)
[2018-08-18] MEDS: AUGMENTIN 875 MG TAB PO ×2 (09:50→20:47)
[2018-08-18] MEDS: ALBUTEROL 90 MCG/ACT 8GM HFA INHALER INH ×2 (09:52→15:59)
[2018-08-18] MEDS: traZODone 50 MG TAB PO (20:47)
[2018-08-18] MEDS: LORazepam 2 MG TAB PO (20:47)
[2018-08-18] MEDS: valACYclovir HCL 500 MG TAB PO (20:47)
[2018-08-19] MEDS: NICOTINE 21MG/24HR 1 EA TRANSDERMAL TD (09:00)
[2018-08-19] MEDS: HALOPERIDOL 5 MG TAB PO ×2 (09:22→20:18)
[2018-08-19] MEDS: OLANZapine ORAL DISINTEGRATING TAB 5MG PO ×3 (09:22→20:18)
[2018-08-19] MEDS: AUGMENTIN 875 MG TAB PO ×2 (09:23→20:18)
[2018-08-19] MEDS: valACYclovir HCL 500 MG TAB PO ×2 (09:23→20:18)
[2018-08-19] MEDS: ONDANSETRON 4 MG TAB (S0181) PO (13:13)
[2018-08-19] MEDS: ALBUTEROL 90 MCG/ACT 8GM HFA INHALER INH (14:52)
[2018-08-20] MEDS: HALOPERIDOL 5 MG TAB PO ×2 (08:58→21:16)
[2018-08-20] MEDS: AUGMENTIN 875 MG TAB PO ×2 (08:58→21:16)
[2018-08-20] MEDS: OLANZapine ORAL DISINTEGRATING TAB 5MG PO ×3 (08:58→21:18)
[2018-08-20] MEDS: valACYclovir HCL 500 MG TAB PO ×2 (08:58→21:16)
[2018-08-20] MEDS: NICOTINE 21MG/24HR 1 EA TRANSDERMAL TD (08:59)
[2018-08-20] MEDS: HYDROCORTISONE 1% CREAM 30 GM TOP ×2 (11:25→17:16)
[2018-08-20] MEDS: traZODone 50 MG TAB PO (21:17)
[2018-08-21] MEDS: OLANZapine ORAL DISINTEGRATING TAB 5MG PO ×3 (08:43→21:08)
[2018-08-21] MEDS: valACYclovir HCL 500 MG TAB PO ×2 (08:43→21:08)
[2018-08-21] MEDS: ALBUTEROL 90 MCG/ACT 8GM HFA INHALER INH (08:43)
[2018-08-21] MEDS: HALOPERIDOL 5 MG TAB PO ×2 (08:43→21:08)
[2018-08-21] MEDS: NICOTINE 21MG/24HR 1 EA TRANSDERMAL TD (08:45)
[2018-08-21] MEDS: NICOTINE 7 MG/24 HR TRANSDERMAL TD (09:00)
[2018-08-21] MEDS: ONDANSETRON 4 MG TAB (S0181) PO (13:03)
[2018-08-21] MEDS: HYDROCORTISONE 1% CREAM 30 GM TOP ×2 (14:39→21:13)
[2018-08-21] MEDS: traZODone 50 MG TAB PO (21:08)
[2018-08-21] MEDS: PRAZOSIN 1 MG CAP PO (21:09)
[2018-08-22] MEDS: valACYclovir HCL 500 MG TAB PO ×2 (08:59→21:07)
[2018-08-22] MEDS: OLANZapine ORAL DISINTEGRATING TAB 5MG PO ×2 (08:59→21:08)
[2018-08-22] MEDS: HALOPERIDOL 5 MG TAB PO ×2 (08:59→21:07)
[2018-08-22] MEDS: HYDROCORTISONE 1% CREAM 30 GM TOP (12:21)
[2018-08-22] MEDS: PRAZOSIN 1 MG CAP PO (21:08)
[2018-08-22] MEDS: traZODone 50 MG TAB PO (21:08)
[2018-08-22] MEDS: ALBUTEROL 90 MCG/ACT 8GM HFA INHALER INH (21:12)
[2018-08-23] MEDS: LORazepam 2 MG TAB PO ×2 (02:49→21:08)
[2018-08-23] MEDS: ACETAMINOPHEN TAB 650MG DOSE (2X325MG) PO (02:49)
[2018-08-23] MEDS: OLANZapine ORAL DISINTEGRATING TAB 5MG PO ×2 (10:06→21:09)
[2018-08-23] MEDS: HALOPERIDOL 5 MG TAB PO ×2 (10:06→21:08)
[2018-08-23] MEDS: valACYclovir HCL 500 MG TAB PO ×2 (10:06→21:08)
[2018-08-23] MEDS: ALBUTEROL 90 MCG/ACT 8GM HFA INHALER INH (18:17)
[2018-08-23] MEDS: PRAZOSIN 1 MG CAP PO (21:08)
[2018-08-24] MEDS: HALOPERIDOL 5 MG TAB PO (08:01)
[2018-08-24] MEDS: OLANZapine ORAL DISINTEGRATING TAB 5MG PO (08:01)
[2018-08-24] MEDS: valACYclovir HCL 500 MG TAB PO (08:01)
== END 2018-08-24 12:45 | disposition home or self-care (01) | DRG 753 ==
LOC: M PSY 08-08 00:39 → M ED 14:34 → M PSY 08-08 14:15 → M ED INP 22:58
DX: F31.64 Bipolar disorder, current episode mixed, severe, with psychotic features (principal); F17.200 Nicotine dependence, unspecified, uncomplicated; F43.10 Post-traumatic stress disorder, unspecified; Z62.810 Personal history of physical and sexual abuse in childhood; J45.909 Unspecified asthma, uncomplicated

== ENCOUNTER → 2018-12-31 | Outpatient (REF) | payer OTHER ==
[~2018-12-31] MED LIST changes: +ABIL400I IM; +AMOX500C PO; +ARNU1INH INH; +HYDR1CAP25; +MEDR4PAK PO; +NAPR-50 PO; +NICO2GUM40 PO; +OLAN5ZYD PO; +PRAZ1CAP PO; +PRED20TA PO; +QUET1TAB9; -QVAR0.07 INH; +QVAR40AE13 INH; -TRAZ-136 PO; +TRAZ-163 PO; +TRAZO50TA PO; +TRINTAB PO; -ZOFR20TA PO; +ZOFR4TAB16 PO; +ZYPR15TA3 PO
[2019-01-04 14:44] LABS: HPV HYBRID CAPTURE II Positive (Negative)
== END ==
LOC: M LAB REF 11:49
PROVIDERS: ATTEND Advanced Practice Midwife
DX: Z12.4 Encounter for screening for malignant neoplasm of cervix (principal); R87.610 Atypical squamous cells of undetermined significance on cytologic smear of cervix (ASC-US)

== ENCOUNTER 2020-03-13 12:40 | Emergency (ER) | payer OTHER ==
[~2020-03-13] VITALS: Ht 152.4 cm; Wt 104.5 kg
[~2020-03-13 12:40] MED LIST changes: +HYDR-3715 PO; -NAPR-50 PO; +NAPR-837 PO; -NORC1TAB4 PO; +NORC1TAB7 PO; -NORCOTAB PO; -QUET1TAB9; -QUET1TAB9 PO; +QUET200T2; +QUET200T2 PO; -TRAZ-163 PO; +TRAZ-257 PO; -TRAZ10TA PO; +TRAZ1TAB10 PO; +TRAZ1TAB12 PO; -TRAZO50TA PO
[2020-03-13] MEDS ORDERED: NS 1,000 ML IV ONE (13:00)
[2020-03-13] MEDS ORDERED: LIDOCAINE W/EPINEPHRINE 1% 20ML VIAL SC ONE (13:30)
[2020-03-13] MEDS ORDERED: BOOSTRIX/ADACEL VACCINE (DIPHTH/PERTUSS/ACELL/TETANUS) 0.5ML SYR IM ONE (13:30)
[2020-03-13 13:35] LABS: HEMATOCRIT 43.2 % (36.0-47.0); HEMOGLOBIN 14.7 g/dl (12.0-15.5); MEAN CORPUSCULAR HEMOGLOBIN 29.4 pg (27.0-33.0); MEAN CORPUSCULAR VOLUME 86.4 fl (80.0-96.0); PLATELET COUNT, AUTOMATED 254 10^3/uL (150-450); WHITE BLOOD COUNT 7.6 10^3/uL (4.0-10.0)
[2020-03-13 14:00] LABS: ALBUMIN 3.8 GM/DL (3.2-5.2); BILIRUBIN,DIRECT 0.1 MG/DL (0.0-0.2); BILIRUBIN,TOTAL 0.4 MG/DL (0.2-1.0); TOTAL PROTEIN 7.2 GM/DL (6.4-8.2)
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
[2020-03-13] MEDS ORDERED: AUGM875T28 PO (15:41)
[2020-03-13] MEDS ORDERED: IBUP-1114 PO (15:41)
[2020-03-13] MEDS ORDERED: AUGMENTIN 875 MG TAB PO ONE (15:45)
[2020-03-13] MEDS ORDERED: IBUPROFEN 400MG TAB PO ONE (15:45)
[2020-03-13 16:06] VITALS: BP 122/60
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
== END 2020-03-13 16:07 | disposition home or self-care (01) ==
LOC: M ED 12:40 → EDBD 12:40 → M ED 16:07
DX: S02.2XXA Fracture of nasal bones, initial encounter for closed fracture (principal); S01.81XA Laceration without foreign body of other part of head, initial encounter; V49.59XA Passenger injured in collision with other motor vehicles in traffic accident, initial encounter; Y92.410 Unspecified street and highway as the place of occurrence of the external cause; J45.909 Unspecified asthma, uncomplicated; F31.9 Bipolar disorder, unspecified; F17.210 Nicotine dependence, cigarettes, uncomplicated

== ENCOUNTER 2020-06-03 09:03 | Emergency (ER) | payer OTHER ==
[~2020-06-03] VITALS: Ht 152.4 cm; Wt 95.9 kg
[~2020-06-03 09:03] MED LIST changes: +AUGM875T28 PO; +IBUP-1114 PO
[2020-06-03] MEDS ORDERED: VIST25CA PO (09:14)
[2020-06-03] MEDS ORDERED: LAMO100T80 PO (09:14)
[2020-06-03] MEDS ORDERED: TRAZ-257 PO (09:15)
[2020-06-03] MEDS ORDERED: PRAZ2CAP PO (09:15)
[2020-06-03] MEDS ORDERED: PROAAER10 INH (09:16)
[2020-06-03 11:39] VITALS: BP 133/83
== END 2020-06-03 11:40 | disposition home or self-care (01) ==
LOC: M ED 09:03
DX: K46.9 Unspecified abdominal hernia without obstruction or gangrene (principal); F17.210 Nicotine dependence, cigarettes, uncomplicated; Z79.899 Other long term (current) drug therapy

== ENCOUNTER → 2020-06-04 | Outpatient (CLI) | payer OTHER ==
[~2020-06-04] MED LIST changes: +LAMO100T80 PO; +PRAZ2CAP PO; +VIST25CA PO
[2020-06-04 12:25] LABS: HEMATOCRIT 44.9 % (36.0-47.0); HEMOGLOBIN 14.7 g/dl (12.0-15.5); MEAN CORPUSCULAR HEMOGLOBIN 28.5 pg (27.0-33.0); MEAN CORPUSCULAR HGB CONC 32.7 g/dl (32.0-36.5); MEAN CORPUSCULAR VOLUME 87.2 fl (80.0-96.0); PLATELET COUNT, AUTOMATED 295 10^3/uL (150-450); RED BLOOD COUNT 5.15 10^6/uL (4.00-5.40); WHITE BLOOD COUNT 8.5 10^3/uL (4.0-10.0)
[2020-06-04 12:36] LABS: INR 0.9; PROTHROMBIN TIME 12.3 SECONDS (11.8-14.0)
[2020-06-04 12:37] LABS: PARTIAL THROMBOPLASTIN TIME 30.4 SECONDS (25.0-38.4)
[2020-06-04 12:55] LABS: ALT/SGPT 104 U/L (12-78); BILIRUBIN,TOTAL 0.5 MG/DL (0.2-1.0); BLOOD UREA NITROGEN 11 MG/DL (7-18); CALCIUM LEVEL 9.2 MG/DL (8.5-10.1); CARBON DIOXIDE LEVEL 26 MEQ/L (21-32); CHLORIDE LEVEL 107 MEQ/L (98-107); CREATININE FOR GFR 0.83 MG/DL (0.55-1.30); GLOMERULAR FILTRATION RATE > 60.0 (>60); GLUCOSE, FASTING 101 MG/DL (70-100); POTASSIUM SERUM 4.4 MEQ/L (3.5-5.1); SODIUM LEVEL 137 MEQ/L (136-145)
== END ==
LOC: M LAB 11:10
PROVIDERS: ATTEND Family Medicine
DX: F31.9 Bipolar disorder, unspecified (principal); K46.9 Unspecified abdominal hernia without obstruction or gangrene

== ENCOUNTER → 2020-10-23 | Outpatient (REF) | payer OTHER ==
[2020-10-23 10:39] LABS: HEMATOCRIT 46.9 % (36.0-47.0); HEMOGLOBIN 14.9 g/dl (12.0-15.5); MEAN CORPUSCULAR HEMOGLOBIN 26.7 pg (27.0-33.0); MEAN CORPUSCULAR HGB CONC 31.8 g/dl (32.0-36.5); MEAN CORPUSCULAR VOLUME 84.1 fl (80.0-96.0); PLATELET COUNT, AUTOMATED 331 10^3/uL (150-450); RED BLOOD COUNT 5.58 10^6/uL (4.00-5.40); WHITE BLOOD COUNT 9.8 10^3/uL (4.0-10.0)
== END ==
LOC: M PLALAB 08:57
PROVIDERS: ATTEND Nurse Practitioner Family
DX: N93.9 Abnormal uterine and vaginal bleeding, unspecified (principal); Z11.3 Encounter for screening for infections with a predominantly sexual mode of transmission

== ENCOUNTER → 2020-10-29 | Outpatient (CLI) | payer OTHER ==
--- NOTE | 2020-10-30 06:38 | REP ---
INDICATION: N93.9 ABNORMAL UTERINE BLEEDING COMPARISON: None. TECHNIQUE: Transabdominal pelvic ultrasound followed by transvaginal examination for better evaluation of the endometrium and adnexa with color Doppler evaluation of the ovaries. FINDINGS: Bladder is unremarkable and measures 11.1 x 8.8 x 5.2 cm. Normal anteverted uterus measures 6.9 x 3.2 x 3.7 cm. The endometrial complex measures 6.1 mm and includes 10 x 7 x 8 mm echogenic focus which may represent small polyp versus clot. Bilateral ovaries are normal in appearance and vascularity without evidence for torsion. Right ovary measures 3.5 x 3.1 x 2.2 cm; R I = 0.45. Left ovary measures 3.1 x 2.4 x 2.8 cm; R I = 0.53. No pelvic fluid or adnexal mass lesion IMPRESSION: Small 10 mm echogenic focus within the endometrium may represent polyp versus small clot. Correlation and 4-6 week follow-up may be warranted. Otherwise normal pelvic ultrasound. <Electronically signed by Adan Wadsworth > 10/30/20 0634
== END ==
LOC: M WHC 12:45
PROVIDERS: ATTEND Nurse Practitioner Family
DX: N93.9 Abnormal uterine and vaginal bleeding, unspecified (principal); R93.5 Abnormal findings on diagnostic imaging of other abdominal regions, including retroperitoneum

== ENCOUNTER → 2021-03-31 | Outpatient (CLI) | payer OTHER ==
[~2021-03-31] MED LIST changes: -SIME180C PO; +SIME180C25 PO
[2021-03-31 11:39] LABS: BASO # 0.1 10^3/uL (0.0-0.2); BASO % 0.6 % (0.0-1.0); EOS # 0.6 10^3/uL (0.0-0.5); EOS % 6.7 % (0.0-3.0); HEMATOCRIT 45.9 % (36.0-47.0); HEMOGLOBIN 14.4 g/dl (12.0-15.5); LYMPH # 3.2 10^3/uL (1.5-5.0); LYMPH % 38.3 % (24.0-44.0); MEAN CORPUSCULAR HEMOGLOBIN 26.2 pg (27.0-33.0); MEAN CORPUSCULAR HGB CONC 31.4 g/dl (32.0-36.5); MEAN CORPUSCULAR VOLUME 83.5 fl (80.0-96.0); MONO # 0.5 10^3/uL (0.0-0.8); MONO % 5.7 % (2.0-8.0); NEUTROPHILS % 48.5 % (36.0-66.0); PLATELET COUNT, AUTOMATED 316 10^3/uL (150-450); WHITE BLOOD COUNT 8.3 10^3/uL (4.0-10.0)
[2021-03-31 11:59] LABS: HCG, SERUM QUALITATIVE NEGATIVE (NEGATIVE)
[2021-03-31 12:06] LABS: ALBUMIN 4.2 GM/DL (3.2-5.2); ALT/SGPT 76 U/L (12-78); BILIRUBIN,TOTAL 0.4 MG/DL (0.2-1.0); BLOOD UREA NITROGEN 9 MG/DL (7-18); CALCIUM LEVEL 9.4 MG/DL (8.5-10.1); CARBON DIOXIDE LEVEL 26 MEQ/L (21-32); CHLORIDE LEVEL 109 MEQ/L (98-107); GLOMERULAR FILTRATION RATE > 60.0 (>60); GLUCOSE, FASTING 103 MG/DL (70-100); LIPASE 179 U/L (73-393); POTASSIUM SERUM 4.2 MEQ/L (3.5-5.1); SODIUM LEVEL 140 MEQ/L (136-145); TOTAL PROTEIN 7.8 GM/DL (6.4-8.2)
[2021-03-31 12:29] LABS: HEMOGLOBIN A1c 5.4 %
== END ==
LOC: M LAB 10:38
PROVIDERS: ATTEND Nurse Practitioner Family
DX: R10.30 Lower abdominal pain, unspecified (principal)

== ENCOUNTER → 2021-04-06 | Outpatient (CLI) | payer OTHER ==
[2021-04-06 12:59] LABS: FOLLICLE STIMULATING HORMONE 4.2 mIU/mL; FREE T4 0.87 NG/DL (0.76-1.46); HCG, SERUM QUALITATIVE NEGATIVE (NEGATIVE); LUTEINIZING HORMONE 8.3 mIU/mL; PROGESTERONE 0.46 NG/ML
== END ==
LOC: M LAB 11:43
PROVIDERS: ATTEND Specialist
DX: N92.6 Irregular menstruation, unspecified (principal)

== ENCOUNTER → 2021-04-06 | Outpatient (REF) | payer OTHER | LOC: M PLALAB 09:38 | PROVIDERS: ATTEND Specialist | DX: Z53.9 Procedure and treatment not carried out, unspecified reason (principal); N92.6 Irregular menstruation, unspecified ==

== ENCOUNTER → 2021-07-23 | Outpatient (REF) | payer OTHER | LOC: M SFHCWAGY 14:20 | PROVIDERS: ATTEND Advanced Practice Midwife | DX: Z01.419 Encounter for gynecological examination (general) (routine) without abnormal findings (principal); Z12.4 Encounter for screening for malignant neoplasm of cervix; Z77.9 Other contact with and (suspected) exposures hazardous to health ==

== ENCOUNTER → 2021-08-03 | Outpatient (CLI) | payer OTHER ==
[2021-08-03 11:59] LABS: ALBUMIN 4.2 GM/DL (3.2-5.2); ALT/SGPT 58 U/L (12-78); BILIRUBIN,TOTAL 0.4 MG/DL (0.2-1.0); BLOOD UREA NITROGEN 7 MG/DL (7-18); CALCIUM LEVEL 9.2 MG/DL (8.5-10.1); CARBON DIOXIDE LEVEL 28 MEQ/L (21-32); CHLORIDE LEVEL 106 MEQ/L (98-107); CREATININE FOR GFR 0.94 MG/DL (0.55-1.30); GLOMERULAR FILTRATION RATE > 60.0 (>60); GLUCOSE, FASTING 85 MG/DL (70-100); POTASSIUM SERUM 4.4 MEQ/L (3.5-5.1); SODIUM LEVEL 139 MEQ/L (136-145); TOTAL PROTEIN 7.8 GM/DL (6.4-8.2)
[2021-08-03 12:04] LABS: TOTAL 25(OH) VITAMIN D 13.1 NG/ML (30.0-100.0)
[2021-08-03 13:01] LABS: HEMOGLOBIN A1c 5.5 %
== END ==
LOC: M LAB 09:58
PROVIDERS: ATTEND Nurse Practitioner Family
DX: E55.9 Vitamin D deficiency, unspecified (principal); R10.30 Lower abdominal pain, unspecified; R73.03 Prediabetes

== ENCOUNTER → 2022-02-28 | Outpatient (REF) | payer OTHER ==
[~2022-02-28] MED LIST changes: -HALO5TA PO; +HALO5TAB33 PO
[2022-02-28 16:38] LABS: ALBUMIN 4.4 GM/DL (3.2-5.2); ALT/SGPT 48 U/L (12-78); BILIRUBIN,TOTAL 0.5 MG/DL (0.2-1.0); BLOOD UREA NITROGEN 18 MG/DL (7-18); CALCIUM LEVEL 9.9 MG/DL (8.5-10.1); CARBON DIOXIDE LEVEL 26 MEQ/L (21-32); CHLORIDE LEVEL 106 MEQ/L (98-107); CREATININE FOR GFR 0.82 MG/DL (0.55-1.30); GLOMERULAR FILTRATION RATE > 60.0 (>60); GLUCOSE, FASTING 88 MG/DL (70-100); POTASSIUM SERUM 4.7 MEQ/L (3.5-5.1); SODIUM LEVEL 138 MEQ/L (136-145)
[2022-02-28 16:45] LABS: BASO % 0.3 % (0.0-1.0); EOS # 0.6 10^3/uL (0.0-0.5); EOS % 5.2 % (0.0-3.0); HEMATOCRIT 46.9 % (36.0-47.0); HEMOGLOBIN 15.6 g/dl (12.0-15.5); LYMPH # 3.3 10^3/uL (1.5-5.0); LYMPH % 31.1 % (24.0-44.0); MEAN CORPUSCULAR HEMOGLOBIN 28.1 pg (27.0-33.0); MEAN CORPUSCULAR HGB CONC 33.3 g/dl (32.0-36.5); MEAN CORPUSCULAR VOLUME 84.4 fl (80.0-96.0); MONO # 0.6 10^3/uL (0.0-0.8); NEUTROPHILS % 56.9 % (36.0-66.0); PLATELET COUNT, AUTOMATED 289 10^3/uL (150-450); RED BLOOD COUNT 5.56 10^6/uL (4.00-5.40); WHITE BLOOD COUNT 10.6 10^3/uL (4.0-10.0)
[2022-02-28 16:47] LABS: TOTAL 25(OH) VITAMIN D 27.4 NG/ML (30.0-100.0)
[2022-02-28 17:22] LABS: HEMOGLOBIN A1c 5.5 %
== END ==
LOC: M LABWUC 15:39
PROVIDERS: ATTEND Nurse Practitioner Family
DX: R73.03 Prediabetes (principal); R74.8 Abnormal levels of other serum enzymes; E55.9 Vitamin D deficiency, unspecified; J45.20 Mild intermittent asthma, uncomplicated

== ENCOUNTER → 2022-10-21 | Outpatient (REF) | payer OTHER ==
[~2022-10-21] MED LIST changes: +ALBU2.5V10 INH; -ALBU83IN INH
== END ==
LOC: M SFHCWAGY 13:03
PROVIDERS: ATTEND Advanced Practice Midwife
DX: Z12.4 Encounter for screening for malignant neoplasm of cervix (principal)

== ENCOUNTER → 2023-02-01 | Outpatient (CLI) | payer MEDICAID ==
[~2023-02-01] MED LIST changes: -BENZ-52 PO; +BENZ1TAB5 PO
[2023-02-01 14:07] LABS: BASO % 0.3 % (0.0-1.0); EOS # 0.3 10^3/uL (0.0-0.5); EOS % 4.1 % (0.0-3.0); HEMATOCRIT 48.8 % (36.0-47.0); HEMOGLOBIN 16.3 g/dl (12.0-15.5); LYMPH # 2.8 10^3/uL (1.5-5.0); LYMPH % 41.4 % (24.0-44.0); MEAN CORPUSCULAR HEMOGLOBIN 28.4 pg (27.0-33.0); MEAN CORPUSCULAR HGB CONC 33.4 g/dl (32.0-36.5); MONO # 0.4 10^3/uL (0.0-0.8); MONO % 6.6 % (2.0-8.0); NEUTROPHILS # 3.2 10^3/uL (1.5-8.5); NEUTROPHILS % 47.3 % (36.0-66.0); PLATELET COUNT, AUTOMATED 325 10^3/uL (150-450); RED BLOOD COUNT 5.74 10^6/uL (4.00-5.40); WHITE BLOOD COUNT 6.7 10^3/uL (4.0-10.0)
[2023-02-01 14:44] LABS: ALBUMIN 4.3 G/DL (3.2-5.2); ALKALINE PHOSPHATASE 71 U/L (46-116); ALT/SGPT 42 U/L (7.0-40); AST/SGOT 24 U/L (<34); BILIRUBIN,TOTAL 0.7 MG/DL (0.3-1.2); BLOOD UREA NITROGEN 13 MG/DL (9-23); CALCIUM LEVEL 9.6 MG/DL (8.5-10.1); CARBON DIOXIDE LEVEL 28 MMOL/L (20-31); CHLORIDE LEVEL 104 MMOL/L (98-107); GLOMERULAR FILTRATION RATE > 60.0 (>60); GLUCOSE, FASTING 75 MG/DL (60-100); POTASSIUM SERUM 3.9 MMOL/L (3.5-5.1); SODIUM LEVEL 138 MMOL/L (136-145); TOTAL PROTEIN 8.1 G/DL (5.7-8.2)
[2023-02-01 14:45] LABS: TOTAL 25(OH) VITAMIN D 24.4 NG/ML (20.0-100.0)
[2023-02-01 15:26] LABS: HEMOGLOBIN A1c 5.2 % (4.0-6.0)
== END ==
LOC: M PLALAB 10:52
PROVIDERS: ATTEND Nurse Practitioner Family
DX: R73.03 Prediabetes (principal); E55.9 Vitamin D deficiency, unspecified; J45.20 Mild intermittent asthma, uncomplicated

== ENCOUNTER → 2023-02-08 | Outpatient (CLI) | payer MEDICAID, OTHER ==
[2023-02-08 18:21] LABS: C REACTIVE PROTEIN QUANTITATIV 0.7 MG/DL (<1.0)
[2023-02-08 18:23] LABS: PERCENT SATURATION 16.6 % (13.2-45.0)
[2023-02-08 18:25] LABS: FERRITIN 44.3 NG/ML (7.3-270.7)
== END ==
LOC: M LAB 17:22
PROVIDERS: ATTEND Nurse Practitioner Family
DX: R19.7 Diarrhea, unspecified (principal); D75.1 Secondary polycythemia

== ENCOUNTER → 2023-11-03 | Outpatient (REF) | payer OTHER, MEDICAID | LOC: M PLALAB 14:31 | PROVIDERS: ATTEND Advanced Practice Midwife | DX: Z12.4 Encounter for screening for malignant neoplasm of cervix (principal) ==

== ENCOUNTER → 2024-01-19 | Outpatient (REF) | payer OTHER | LOC: M SFHCPLAZ 16:59 | PROVIDERS: ATTEND Physician Assistant | DX: R09.89 Other specified symptoms and signs involving the circulatory and respiratory systems (principal) ==

== ENCOUNTER → 2024-11-04 | Outpatient (REF) | payer OTHER ==
[~2024-11-04] MED LIST changes: -ADV100INH INH; +ADVA1AER8 INH; -SIME180C25 PO; +SIME1CAP4 PO
== END ==
LOC: M SFHCWAGY 12:57
PROVIDERS: ATTEND Advanced Practice Midwife
DX: Z12.4 Encounter for screening for malignant neoplasm of cervix (principal)

== ENCOUNTER → 2025-01-21 | Outpatient (CLI) | payer OTHER ==
[2025-01-21 17:54] LABS: BASO % 0.4 % (0.0-1.0); EOS # 0.6 10^3/uL (0.0-0.5); EOS % 7.6 % (0.0-3.0); HEMATOCRIT 43.7 % (36.0-47.0); HEMOGLOBIN 14.7 g/dl (12.0-15.5); LYMPH # 3.4 10^3/uL (1.5-5.0); LYMPH % 42.4 % (24.0-44.0); MEAN CORPUSCULAR HEMOGLOBIN 28.8 pg (27.0-33.0); MEAN CORPUSCULAR HGB CONC 33.6 g/dl (32.0-36.5); MEAN CORPUSCULAR VOLUME 85.5 fl (80.0-96.0); MONO # 0.4 10^3/uL (0.0-0.8); MONO % 5.4 % (2.0-8.0); NEUTROPHILS # 3.5 10^3/uL (1.5-8.5); NEUTROPHILS % 43.9 % (36.0-66.0); PLATELET COUNT, AUTOMATED 277 10^3/uL (150-450); RED BLOOD COUNT 5.11 10^6/uL (4.00-5.40); WHITE BLOOD COUNT 7.9 10^3/uL (4.0-10.0)
[2025-01-21 18:00] LABS: ERYTHROCYTE SEDIMENTATION RATE 20 mm/hr (0-20)
[2025-01-21 18:13] LABS: LIPASE 47 U/L (12-53)
[2025-01-21 18:15] LABS: C REACTIVE PROTEIN QUANTITATIV 0.67 MG/DL (<1.0)
[2025-01-21 18:16] LABS: ALKALINE PHOSPHATASE 69 U/L (35-104); ALT/SGPT 76 U/L (7.0-40); AST/SGOT 32 U/L (<34); BILIRUBIN,TOTAL 0.2 MG/DL (0.3-1.2); BLOOD UREA NITROGEN 9 MG/DL (9-23); CALCIUM LEVEL 8.8 MG/DL (8.5-10.1); CARBON DIOXIDE LEVEL 26 MMOL/L (20-31); CHLORIDE LEVEL 109 MMOL/L (98-107); CREATININE FOR GFR 0.68 MG/DL (0.55-1.30); GLOMERULAR FILTRATION RATE > 60.0 (>60); GLUCOSE, FASTING 80 MG/DL (60-100); POTASSIUM SERUM 3.8 MMOL/L (3.5-5.1); SODIUM LEVEL 142 MMOL/L (136-145); TOTAL PROTEIN 7.1 G/DL (5.7-8.2)
== END ==
LOC: M RAD 17:05
PROVIDERS: ATTEND Student in an Organized Health Care Education/Training Program
DX: R10.11 Right upper quadrant pain (principal)

== ENCOUNTER → 2025-01-22 | Outpatient (CLI) | payer OTHER | LOC: M PLALAB 10:01 | PROVIDERS: ATTEND Student in an Organized Health Care Education/Training Program | DX: R10.11 Right upper quadrant pain (principal); C7B.00 Secondary carcinoid tumors, unspecified site ==

== ENCOUNTER → 2025-01-23 | Outpatient (CLI) | payer OTHER ==
[~2025-01-23] MED LIST changes: +HYDR-3713 PO
== END ==
LOC: M RAD 09:27
PROVIDERS: ATTEND Student in an Organized Health Care Education/Training Program
DX: R10.11 Right upper quadrant pain (principal); C7B.00 Secondary carcinoid tumors, unspecified site; K76.0 Fatty (change of) liver, not elsewhere classified; Z90.49 Acquired absence of other specified parts of digestive tract; K43.9 Ventral hernia without obstruction or gangrene

== ENCOUNTER → 2025-01-24 | Outpatient (REF) | payer OTHER ==
[2025-01-24 17:00] LABS: HEPATITIS B SURFACE ANTIBODY POSITIVE (POSITIVE)
[2025-01-24 17:11] LABS: HEPATITIS B SURFACE ANTIGEN NEGATIVE (NEGATIVE)
[2025-01-24 17:32] LABS: HEPATITIS C VIRUS ABY INDEX 0.06 INDEX (<0.8)
[2025-01-24 17:59] LABS: Trichomonas vaginalis (AMP) NOT DETECTED (NEGATIVE)
[2025-01-24 18:23] LABS: GC DNA AMPLIFICATION NEGATIVE (NEGATIVE)
== END ==
LOC: M SFHCPLAZ 15:25
PROVIDERS: ATTEND Student in an Organized Health Care Education/Training Program
DX: R10.11 Right upper quadrant pain (principal)

== ENCOUNTER 2025-01-26 21:00 | Emergency (ER) | payer OTHER ==
[~2025-01-26] VITALS: Ht 152.4 cm; Wt 90.8 kg
[~2025-01-26 21:00] MED LIST changes: -HYDR-3713 PO
[2025-01-26 21:34] LABS: BASO # 0.1 10^3/uL (0.0-0.2); BASO % 0.6 % (0.0-1.0); EOS # 0.6 10^3/uL (0.0-0.5); EOS % 5.6 % (0.0-3.0); HEMATOCRIT 48.4 % (36.0-47.0); HEMOGLOBIN 16.2 g/dl (12.0-15.5); LYMPH # 3.8 10^3/uL (1.5-5.0); LYMPH % 36.3 % (24.0-44.0); MEAN CORPUSCULAR HEMOGLOBIN 28.5 pg (27.0-33.0); MEAN CORPUSCULAR HGB CONC 33.5 g/dl (32.0-36.5); MEAN CORPUSCULAR VOLUME 85.1 fl (80.0-96.0); MONO # 0.5 10^3/uL (0.0-0.8); MONO % 4.6 % (2.0-8.0); NEUTROPHILS # 5.5 10^3/uL (1.5-8.5); NEUTROPHILS % 52.4 % (36.0-66.0); PLATELET COUNT, AUTOMATED 319 10^3/uL (150-450); RED BLOOD COUNT 5.69 10^6/uL (4.00-5.40); WHITE BLOOD COUNT 10.5 10^3/uL (4.0-10.0)
[2025-01-26 22:06] LABS: LIPASE 47 U/L (12-53)
[2025-01-26 22:09] LABS: ALBUMIN 4.3 G/DL (3.2-5.2); ALKALINE PHOSPHATASE 73 U/L (35-104); ALT/SGPT 97 U/L (7.0-40); AST/SGOT 46 U/L (<34); BILIRUBIN,DIRECT 0.1 MG/DL (<0.4); BILIRUBIN,TOTAL 0.3 MG/DL (0.3-1.2); BLOOD UREA NITROGEN 9 MG/DL (9-23); CALCIUM LEVEL 9.7 MG/DL (8.5-10.1); CARBON DIOXIDE LEVEL 29 MMOL/L (20-31); CHLORIDE LEVEL 104 MMOL/L (98-107); CREATININE FOR GFR 0.74 MG/DL (0.55-1.30); GLOMERULAR FILTRATION RATE > 90.0 (>60); GLUCOSE, FASTING 88 MG/DL (60-100); POTASSIUM SERUM 4.5 MMOL/L (3.5-5.1); SODIUM LEVEL 140 MMOL/L (136-145); TOTAL PROTEIN 7.8 G/DL (5.7-8.2)
[2025-01-26 22:24] LABS: HCG, SERUM QUALITATIVE NEGATIVE (NEGATIVE)
[2025-01-26] MEDS: MORPHINE 4 MG/ML 1ML VIAL IV ONE (23:30)
[2025-01-27] MEDS: FAMOTIDINE 20MG/2ML VIAL IVP ONE (00:21)
[2025-01-27] MEDS: GASTROGRAFIN SOLUTION 30ML PO SCH (00:21)
[2025-01-27] MEDS ORDERED: ISOVUE-370 76% 100ML VIAL As Ordered ONE (00:31)
[2025-01-27] MEDS ORDERED: HYDR-3713 PO (02:40)
[2025-01-27] MEDS: NORCO 5/325MG TABLET (HOME DOSE PACK) PO ONE (02:58)
[2025-01-27 03:00] VITALS: BP 108/62; TEMP 97.2; O2SAT 94
== END 2025-01-27 03:02 | disposition home or self-care (01) ==
LOC: M ED 21:00
DX: R10.9 Unspecified abdominal pain (principal); K76.0 Fatty (change of) liver, not elsewhere classified; F20.9 Schizophrenia, unspecified; F31.9 Bipolar disorder, unspecified; F43.10 Post-traumatic stress disorder, unspecified; F32.A Depression, unspecified; F17.200 Nicotine dependence, unspecified, uncomplicated; Z90.89 Acquired absence of other organs; Z79.52 Long term (current) use of systemic steroids; Z79.899 Other long term (current) drug therapy; Z79.1 Long term (current) use of non-steroidal anti-inflammatories (NSAID)
CPT/HCPCS: 74177; 80048; 80076; 83690; 84703; 85025; 96374; 96375; 99284; J1308; Q9963; Q9967

== ENCOUNTER 2025-06-15 16:36 | Emergency (ER) | payer OTHER ==
[~2025-06-15] VITALS: Ht 160 cm; Wt 89.8 kg
[~2025-06-15 16:36] MED LIST changes: -ABIL400I IM; +ARIP400S IM; +HYDR-3713 PO; -IBUP-1022 PO; +IBUP600T42 PO
[2025-06-15] MEDS: predniSONE 20 MG TAB PO ONE (20:12)
[2025-06-15] MEDS: IPRATROPIUM 0.5 MG/ALBUTEROL 2.5 MG INH SOL UD 3 ML NEB SCH (20:19)
[2025-06-15] MEDS ORDERED: PRED20TA PO (21:24)
[2025-06-15 21:45] VITALS: BP 131/71
[2025-06-15 21:55] VITALS: TEMP 97.6; O2SAT 97
== END 2025-06-15 21:56 | disposition home or self-care (01) ==
LOC: M ED 16:36
DX: J45.901 Unspecified asthma with (acute) exacerbation (principal); F31.9 Bipolar disorder, unspecified; Z90.89 Acquired absence of other organs; Z79.52 Long term (current) use of systemic steroids; Z79.1 Long term (current) use of non-steroidal anti-inflammatories (NSAID); Z79.899 Other long term (current) drug therapy
CPT/HCPCS: 71045; 87486; 87581; 87633; 87798; 93005; 94640; 99284; J7512